=== PATIENT | female | born 1965 | race African-American/Black ===

== ENCOUNTER 2020-06-27 09:24 | Inpatient (IN) ==
[2020-06-27] MEDS ORDERED: GLUCAGON 1 MG VIAL IM PRN (10:58)
[2020-06-27] MEDS ORDERED: DEXTROSE 50% 25 GM/50 ML VIAL IV PRN (10:58)
[2020-06-27] MEDS ORDERED: BISACODYL 5 MG TABLET PO PRN (10:58)
[2020-06-27] MEDS: DEXTROSE 5% NACL 0.45% 1,000 ML IV SCH (11:55)
[2020-06-27] MEDS: PIPERACILLIN/TAZOBACTAM 3,375 MG in SODIUM CHLORIDE 0.9% 100 ML IV SCH ×2 (14:05→22:05)
[2020-06-28 05:46] LABS: Basophils % 0.2 % (0.0-0.8); Eosinophils # 0.1 10*3/uL (0.0-0.87); Eosinophils % 0.3 % (0.00-10.9); Hematocrit 34.1 VOL% (35.7-47.0); Hemoglobin 11.6 GM/DL (12.0-16.0); Immature Granulocytes % 0.7 %; Immature Granulocytes Absolute 0.14 #; Lymphocytes # 0.7 10*3/uL (1.4-4.0); Lymphocytes % 3.3 % (21.3-54.2); Mean Platelet Volume 11.9 FL (9.6-12.0); Monocytes % 3.2 % (1.7-12.7); Neutrophils % 92.3 % (38.7-73.9); Platelet Count 180 T/CUMM (130-400); Red Blood Count 3.92 MC/CUMM (3.8-5.5); Red Cell Distribution Width 14.6 % (9.3-17.3); White Blood Count 19.9 T/CUMM (4-12)
[2020-06-28 06:04] LABS: Calcium 9.5 MG/DL (8.5-10.1); Osmolality,Calculated 277.7 MOS/KG (273-304)
[2020-06-28] MEDS: DEXTROSE 5% NACL 0.45% 1,000 ML IV SCH ×2 (06:06→22:19)
[2020-06-28] MEDS: PIPERACILLIN/TAZOBACTAM 3,375 MG in SODIUM CHLORIDE 0.9% 100 ML IV SCH ×2 (06:06→16:08)
[2020-06-28 06:10] LABS: Band Neutrophils 2 % (0-10); Hypochromasia 1+; Lymphocytes 3 % (20-55); Platelet Estimate Adequate; Segmented Neutrophils 92 % (50-85); Total Cells Counted 100
[2020-06-28 08:27] LABS: INR 1.2; PT Patient Result 12.7 SECS (9.8-11.9)
[2020-06-28] MEDS ORDERED: cefTRIAXone 1,000 MG in SODIUM CHLORIDE 0.9% 100 ML IV SCH (09:00)
[2020-06-28] MEDS ORDERED: SODIUM CHLORIDE 0.45% 1,000 ML IV SCH (11:00)
[2020-06-28] MEDS ORDERED: DIAZEPAM 5 MG TABLET PO ONE (12:00)
[2020-06-28] MEDS: hydroCHLOROthiazide 12.5 MG CAPSULE PO SCH (14:55)
[2020-06-28] MEDS: OLMESARTAN 20 MG TABLET PO SCH (14:55)
[2020-06-28] MEDS: PANTOPRAZOLE 40 MG TABLET PO SCH (14:55)
[2020-06-29] MEDS: PIPERACILLIN/TAZOBACTAM 3,375 MG in SODIUM CHLORIDE 0.9% 100 ML IV SCH ×3 (00:31→16:00)
[2020-06-29] MEDS: DEXTROSE 5% NACL 0.45% 1,000 ML IV SCH ×2 (04:56→22:58)
[2020-06-29 05:44] LABS: Basophils % 0.2 % (0.0-0.8); Hematocrit 30.4 VOL% (35.7-47.0); Immature Granulocytes % 0.7 %; Immature Granulocytes Absolute 0.14 #; Lymphocytes # 1.5 10*3/uL (1.4-4.0); Lymphocytes % 7.9 % (21.3-54.2); Mean Corpuscular HGB Conc 32.9 GM/DL (32-36); Mean Corpuscular Volume 86.6 FL (87-102); Monocytes % 7.5 % (1.7-12.7); NRBC # 0.02 10*3/uL; Neutrophils % 83.7 % (38.7-73.9); Platelet Count 188 T/CUMM (130-400); Red Blood Count 3.51 MC/CUMM (3.8-5.5); Red Cell Distribution Width 14.5 % (9.3-17.3)
[2020-06-29 05:53] LABS: Calcium 8.9 MG/DL (8.5-10.1); Osmolality,Calculated 277.7 MOS/KG (273-304)
[2020-06-29 06:10] LABS: Band Neutrophils 1 % (0-10); Hypochromasia 1+; Lymphocytes 7 % (20-55); Microcytosis 1+; Ovalocytes Slight; Platelet Estimate Adequate; Segmented Neutrophils 89 % (50-85); Total Cells Counted 100
[2020-06-29] MEDS: hydroCHLOROthiazide 12.5 MG CAPSULE PO SCH (08:44)
[2020-06-29] MEDS: OLMESARTAN 20 MG TABLET PO SCH (08:44)
[2020-06-29] MEDS: PANTOPRAZOLE 40 MG TABLET PO SCH (08:44)
[2020-06-30] MEDS: PIPERACILLIN/TAZOBACTAM 3,375 MG in SODIUM CHLORIDE 0.9% 100 ML IV SCH ×3 (02:24→17:54)
[2020-06-30 05:57] LABS: Basophils # 0.1 10*3/uL (0.0-0.2); Basophils % 0.4 % (0.0-0.8); Eosinophils % 0.3 % (0.00-10.9); Hematocrit 30.1 VOL% (35.7-47.0); Hemoglobin 10.2 GM/DL (12.0-16.0); Immature Granulocytes % 2.8 %; Immature Granulocytes Absolute 0.37 #; Lymphocytes % 14.6 % (21.3-54.2); Mean Corpuscular HGB Conc 33.9 GM/DL (32-36); Mean Platelet Volume 11.3 FL (9.6-12.0); Monocytes % 12.4 % (1.7-12.7); Neutrophils % 69.5 % (38.7-73.9); Platelet Count 176 T/CUMM (130-400); Red Cell Distribution Width 14.5 % (9.3-17.3); White Blood Count 13.3 T/CUMM (4-12)
[2020-06-30 06:26] LABS: Calcium 8.6 MG/DL (8.5-10.1); Osmolality,Calculated 278.4 MOS/KG (273-304)
[2020-06-30] MEDS: OLMESARTAN 20 MG TABLET PO SCH (09:05)
[2020-06-30] MEDS: hydroCHLOROthiazide 12.5 MG CAPSULE PO SCH (09:06)
[2020-06-30] MEDS: PANTOPRAZOLE 40 MG TABLET PO SCH (09:06)
[2020-06-30] MEDS ORDERED: POTASSIUM CHLORIDE 20 MEQ TABLET PO ONE (11:30)
[2020-06-30] MEDS: DEXTROSE 5% NACL 0.45% 1,000 ML IV SCH (23:52)
[2020-07-01] MEDS: DEXTROSE 5% NACL 0.45% 1,000 ML IV SCH ×3 (00:12→22:56)
[2020-07-01] MEDS: PIPERACILLIN/TAZOBACTAM 3,375 MG in SODIUM CHLORIDE 0.9% 100 ML IV SCH ×3 (01:20→19:19)
[2020-07-01 04:47] LABS: Basophils # 0.1 10*3/uL (0.0-0.2); Basophils % 0.4 % (0.0-0.8); Eosinophils # 0.1 10*3/uL (0.0-0.87); Eosinophils % 0.3 % (0.00-10.9); Hematocrit 29.4 VOL% (35.7-47.0); Hemoglobin 10.2 GM/DL (12.0-16.0); Immature Granulocytes % 4.7 %; Immature Granulocytes Absolute 0.79 #; Lymphocytes # 2.2 10*3/uL (1.4-4.0); Lymphocytes % 13.2 % (21.3-54.2); Mean Corpuscular HGB Conc 34.7 GM/DL (32-36); Mean Corpuscular Volume 85.5 FL (87-102); Mean Platelet Volume 10.5 FL (9.6-12.0); Monocytes % 12.5 % (1.7-12.7); NRBC # 0.04 10*3/uL; Neutrophils % 68.9 % (38.7-73.9); Platelet Count 208 T/CUMM (130-400); Red Blood Count 3.44 MC/CUMM (3.8-5.5); Red Cell Distribution Width 14.3 % (9.3-17.3); White Blood Count 16.8 T/CUMM (4-12)
[2020-07-01 05:06] LABS: Calcium 9.2 MG/DL (8.5-10.1); Osmolality,Calculated 271.8 MOS/KG (273-304)
[2020-07-01 05:12] LABS: Lymphocytes 10 % (20-55); Segmented Neutrophils 80 % (50-85); Total Cells Counted 100
[2020-07-01 05:13] LABS: Hypochromasia 1+; Microcytosis 1+; Ovalocytes Slight; Platelet Estimate Adequate
[2020-07-01] MEDS: OLMESARTAN 20 MG TABLET PO SCH (09:08)
[2020-07-01] MEDS: hydroCHLOROthiazide 12.5 MG CAPSULE PO SCH (09:08)
[2020-07-01] MEDS: PANTOPRAZOLE 40 MG TABLET PO SCH (09:09)
[2020-07-01] MEDS ORDERED: POTASSIUM CHLORIDE INJ 50 MEQ in SODIUM CHLORIDE 0.9% 500 ML IV ONE (10:00)
[2020-07-01] MEDS: ONDANSETRON 4 MG/2 ML VIAL IV PRN (12:36)
[2020-07-01] MEDS ORDERED: fentaNYL 100 MCG/2 ML VIAL ONE (13:07)
[2020-07-01] MEDS ORDERED: MIDAZOLAM 2 MG/2 ML VIAL ONE (13:07)
[2020-07-01] MEDS ORDERED: LIDOCAINE 1% 5 ML VIAL ONE (13:08)
[2020-07-01] MEDS ORDERED: DEXAMETHASONE 4 MG/1 ML VIAL ONE (13:08)
[2020-07-01] MEDS ORDERED: ROPIVACAINE 0.5% 30 ML VIAL ONE (13:09)
[2020-07-01] MEDS ORDERED: ONDANSETRON 4 MG/2 ML VIAL IV PRN (17:36)
[2020-07-01 17:38] LABS: Bilirubin,Urine Negative (Negative); Blood, Urine Negative (Negative); Glucose,Urine (UA) Negative (Negative); Ketones,Urine Negative (Negative); Mucus,Urine Occasional /LPF (Occasional); Nitrite,Urine Negative (Negative); Protein,Urine Negative; RBC,Urine 1 /HPF (0-4); Squamous Epithelial Cell,Urine Occasional /HPF (0-10); Urine Appearance CLEAR (Clear); Urine Color Yellow (Yellow); Urine Specific Gravity 1.008 (1.001-1.035)
[2020-07-01] MEDS: HYDROmorphone 2 MG/1 ML VIAL IV PRN ×4 (17:40→18:02)
[2020-07-01] MEDS: MORPHINE 4 MG/1 ML VIAL IV PRN ×2 (19:43→23:40)
[2020-07-02] MEDS: DEXTROSE 5% NACL 0.45% 1,000 ML IV SCH ×2 (01:36→23:33)
[2020-07-02] MEDS: PIPERACILLIN/TAZOBACTAM 3,375 MG in SODIUM CHLORIDE 0.9% 100 ML IV SCH ×3 (01:38→16:51)
[2020-07-02] MEDS: MORPHINE 4 MG/1 ML VIAL IV PRN ×2 (04:33→12:45)
[2020-07-02 06:23] LABS: Basophils # 0.1 10*3/uL (0.0-0.2); Basophils % 0.3 % (0.0-0.8); Hematocrit 31.1 VOL% (35.7-47.0); Hemoglobin 10.5 GM/DL (12.0-16.0); Immature Granulocytes % 2.5 %; Lymphocytes # 2.2 10*3/uL (1.4-4.0); Lymphocytes % 9.1 % (21.3-54.2); Mean Corpuscular HGB Conc 33.8 GM/DL (32-36); Mean Corpuscular Volume 88.6 FL (87-102); Mean Platelet Volume 10.9 FL (9.6-12.0); Monocytes % 6.1 % (1.7-12.7); NRBC # 0.03 10*3/uL; Platelet Count 254 T/CUMM (130-400); Red Blood Count 3.51 MC/CUMM (3.8-5.5); Red Cell Distribution Width 14.7 % (9.3-17.3); White Blood Count 23.8 T/CUMM (4-12)
[2020-07-02 06:46] LABS: Calcium 9.2 MG/DL (8.5-10.1); Osmolality,Calculated 279.4 MOS/KG (273-304)
[2020-07-02 06:48] LABS: Band Neutrophils 18 % (0-10); Lymphocytes 10 % (20-55); Metamyelocytes 1 %; Nucleated Red Blood Cells 1 (0-5); Platelet Estimate Normal; Segmented Neutrophils 65 % (50-85); Total Cells Counted 100
[2020-07-02 06:49] LABS: Anisocytosis Slight; Smudge Cells Few
[2020-07-02] MEDS: OLMESARTAN 20 MG TABLET PO SCH (09:01)
[2020-07-02] MEDS: PANTOPRAZOLE 40 MG TABLET PO SCH (09:01)
[2020-07-02] MEDS: hydroCHLOROthiazide 12.5 MG CAPSULE PO SCH (09:01)
[2020-07-02] MEDS: ENOXAPARIN 40 MG/0.4 ML SYRINGE SUBCUT SCH (20:52)
[2020-07-03 06:14] LABS: Basophils # 0.1 10*3/uL (0.0-0.2); Basophils % 0.2 % (0.0-0.8); Hematocrit 26.7 VOL% (35.7-47.0); Hemoglobin 9.4 GM/DL (12.0-16.0); Immature Granulocytes % 4.3 %; Immature Granulocytes Absolute 1.15 #; Lymphocytes # 3.2 10*3/uL (1.4-4.0); Lymphocytes % 11.9 % (21.3-54.2); Mean Corpuscular HGB Conc 35.2 GM/DL (32-36); Mean Corpuscular Volume 91.1 FL (87-102); Mean Platelet Volume 10.6 FL (9.6-12.0); Monocytes % 5.3 % (1.7-12.7); NRBC # 0.07 10*3/uL; Neutrophils % 78.3 % (38.7-73.9); Platelet Count 321 T/CUMM (130-400); Red Blood Count 2.93 MC/CUMM (3.8-5.5); Red Cell Distribution Width 16.3 % (9.3-17.3); White Blood Count 26.6 T/CUMM (4-12)
[2020-07-03 06:34] LABS: Calcium 8.7 MG/DL (8.5-10.1)
[2020-07-03 08:28] LABS: Band Neutrophils 4 % (0-10); Metamyelocytes 2 %; Total Cells Counted 100
[2020-07-03 08:29] LABS: Giant Platelets Few; Hypochromasia Slight; Lymphocytes 11 % (20-55); Platelet Estimate Normal; Segmented Neutrophils 76 % (50-85)
[2020-07-03] MEDS: DEXTROSE 5% NACL 0.45% 1,000 ML IV SCH (08:47)
[2020-07-03] MEDS: PIPERACILLIN/TAZOBACTAM 3,375 MG in SODIUM CHLORIDE 0.9% 100 ML IV SCH ×2 (08:48→16:11)
[2020-07-03] MEDS: hydroCHLOROthiazide 12.5 MG CAPSULE PO SCH (08:49)
[2020-07-03] MEDS: OLMESARTAN 20 MG TABLET PO SCH (08:49)
[2020-07-03] MEDS: PANTOPRAZOLE 40 MG TABLET PO SCH ×2 (08:49→20:49)
[2020-07-03] MEDS: MORPHINE 4 MG/1 ML VIAL IV PRN (09:47)
[2020-07-03] MEDS: ENOXAPARIN 40 MG/0.4 ML SYRINGE SUBCUT SCH (20:50)
[2020-07-04] MEDS: PIPERACILLIN/TAZOBACTAM 3,375 MG in SODIUM CHLORIDE 0.9% 100 ML IV SCH ×3 (00:35→18:17)
[2020-07-04 06:43] LABS: Basophils # 0.1 10*3/uL (0.0-0.2); Basophils % 0.2 % (0.0-0.8); Eosinophils % 0.1 % (0.00-10.9); Hematocrit 26.7 VOL% (35.7-47.0); Hemoglobin 9.1 GM/DL (12.0-16.0); Immature Granulocytes % 3.8 %; Immature Granulocytes Absolute 1.15 #; Lymphocytes % 9.9 % (21.3-54.2); Mean Corpuscular HGB Conc 34.1 GM/DL (32-36); Mean Platelet Volume 10.2 FL (9.6-12.0); Monocytes % 4.8 % (1.7-12.7); NRBC # 0.09 10*3/uL; Neutrophils % 81.2 % (38.7-73.9); Platelet Count 300 T/CUMM (130-400); Red Cell Distribution Width 15.1 % (9.3-17.3); White Blood Count 30.4 T/CUMM (4-12)
[2020-07-04 06:59] LABS: Calcium 8.8 MG/DL (8.5-10.1)
[2020-07-04] MEDS: DEXTROSE 5% NACL 0.45% 1,000 ML IV SCH (07:48)
[2020-07-04] MEDS: PANTOPRAZOLE 40 MG TABLET PO SCH ×2 (09:33→20:36)
[2020-07-04] MEDS: OLMESARTAN 20 MG TABLET PO SCH (09:33)
[2020-07-04] MEDS: hydroCHLOROthiazide 12.5 MG CAPSULE PO SCH (09:33)
[2020-07-04 12:24] LABS: Lymphocytes 8 % (20-55); Segmented Neutrophils 92 % (50-85); Total Cells Counted 100
[2020-07-04 12:25] LABS: Platelet Estimate Adequate
[2020-07-04] MEDS: VANCOMYCIN INJ 1,500 MG in SODIUM CHLORIDE 0.9% 500 ML IV SCH ×2 (14:15→22:33)
[2020-07-04] MEDS: ENOXAPARIN 40 MG/0.4 ML SYRINGE SUBCUT SCH (20:36)
[2020-07-05] MEDS: PIPERACILLIN/TAZOBACTAM 3,375 MG in SODIUM CHLORIDE 0.9% 100 ML IV SCH ×3 (02:47→22:59)
[2020-07-05] MEDS: ONDANSETRON 4 MG/2 ML VIAL IV PRN (03:42)
[2020-07-05 06:28] LABS: Basophils # 0.1 10*3/uL (0.0-0.2); Basophils % 0.2 % (0.0-0.8); Hematocrit 26.3 VOL% (35.7-47.0); Immature Granulocytes % 3.1 %; Immature Granulocytes Absolute 1.03 #; Lymphocytes # 2.2 10*3/uL (1.4-4.0); Lymphocytes % 6.7 % (21.3-54.2); Mean Corpuscular HGB Conc 34.2 GM/DL (32-36); Mean Platelet Volume 10.3 FL (9.6-12.0); Monocytes % 4.3 % (1.7-12.7); NRBC # 0.09 10*3/uL; Neutrophils % 85.7 % (38.7-73.9); Platelet Count 365 T/CUMM (130-400); Red Blood Count 2.99 MC/CUMM (3.8-5.5); Red Cell Distribution Width 14.7 % (9.3-17.3); White Blood Count 32.8 T/CUMM (4-12)
[2020-07-05 07:01] LABS: Anisocytosis 2+; Band Neutrophils 8 % (0-10); Calcium 8.9 MG/DL (8.5-10.1); Lymphocytes 9 % (20-55); Osmolality,Calculated 264.2 MOS/KG (273-304); Platelet Estimate Normal; Polychromasia Slight; Segmented Neutrophils 73 % (50-85); Target Cells Few; Total Cells Counted 100
[2020-07-05 07:02] LABS: Macrocytosis Slight
[2020-07-05] MEDS: hydroCHLOROthiazide 12.5 MG CAPSULE PO SCH (09:17)
[2020-07-05] MEDS: OLMESARTAN 20 MG TABLET PO SCH (09:17)
[2020-07-05] MEDS: VANCOMYCIN INJ 1,500 MG in SODIUM CHLORIDE 0.9% 500 ML IV SCH ×2 (09:18→20:03)
[2020-07-05] MEDS: PANTOPRAZOLE 40 MG TABLET PO SCH ×2 (09:18→21:30)
[2020-07-05 11:36] LABS: Amorphous Crystals,Urine Few /HPF (Few); Bilirubin,Urine Negative (Negative); Blood, Urine Negative (Negative); Glucose,Urine (UA) Negative (Negative); Ketones,Urine Negative (Negative); Mucus,Urine Occasional /LPF (Occasional); Nitrite,Urine Negative (Negative); Protein,Urine Negative; RBC,Urine 3 /HPF (0-4); Squamous Epithelial Cell,Urine Moderate /HPF (0-10); Urine Appearance Slightly Hazy (Clear); Urine Color Amber (Yellow); WBC,Urine 1 /HPF (0-6)
[2020-07-05] MEDS: ENOXAPARIN 40 MG/0.4 ML SYRINGE SUBCUT SCH (21:31)
[2020-07-06] MEDS: PIPERACILLIN/TAZOBACTAM 3,375 MG in SODIUM CHLORIDE 0.9% 100 ML IV SCH ×2 (05:01→13:50)
[2020-07-06 07:24] LABS: Basophils # 0.1 10*3/uL (0.0-0.2); Basophils % 0.2 % (0.0-0.8); Eosinophils % 0.1 % (0.00-10.9); Hematocrit 26.4 VOL% (35.7-47.0); Hemoglobin 8.9 GM/DL (12.0-16.0); Immature Granulocytes Absolute 0.52 #; Lymphocytes # 2.2 10*3/uL (1.4-4.0); Lymphocytes % 8.2 % (21.3-54.2); Mean Corpuscular HGB Conc 33.7 GM/DL (32-36); Mean Corpuscular Volume 88.6 FL (87-102); Mean Platelet Volume 9.9 FL (9.6-12.0); Monocytes % 5.3 % (1.7-12.7); NRBC # 0.07 10*3/uL; Neutrophils % 84.2 % (38.7-73.9); Platelet Count 394 T/CUMM (130-400); Red Blood Count 2.98 MC/CUMM (3.8-5.5); Red Cell Distribution Width 15.3 % (9.3-17.3); White Blood Count 26.4 T/CUMM (4-12)
[2020-07-06 07:45] LABS: Calcium 8.9 MG/DL (8.5-10.1); Osmolality,Calculated 267.1 MOS/KG (273-304)
[2020-07-06 07:48] LABS: Hypochromasia 1+; Lymphocytes 4 % (20-55); Microcytosis 1+; Nucleated Red Blood Cells 1 (0-5); Platelet Estimate Adequate; Segmented Neutrophils 92 % (50-85); Total Cells Counted 100
[2020-07-06] MEDS: OLMESARTAN 20 MG TABLET PO SCH (09:13)
[2020-07-06] MEDS: hydroCHLOROthiazide 12.5 MG CAPSULE PO SCH (09:14)
[2020-07-06] MEDS: PANTOPRAZOLE 40 MG TABLET PO SCH ×2 (09:14→20:37)
[2020-07-06] MEDS: VANCOMYCIN INJ 1,500 MG in SODIUM CHLORIDE 0.9% 500 ML IV SCH ×2 (09:16→20:37)
[2020-07-06] MEDS: ENOXAPARIN 40 MG/0.4 ML SYRINGE SUBCUT SCH (20:37)
[2020-07-07] MEDS: PIPERACILLIN/TAZOBACTAM 3,375 MG in SODIUM CHLORIDE 0.9% 100 ML IV SCH ×2 (01:26→08:50)
[2020-07-07] MEDS: hydroCHLOROthiazide 12.5 MG CAPSULE PO SCH (08:51)
[2020-07-07] MEDS: OLMESARTAN 20 MG TABLET PO SCH (08:51)
[2020-07-07] MEDS: PANTOPRAZOLE 40 MG TABLET PO SCH (08:51)
[2020-07-07 09:06] LABS: Basophils # 0.1 10*3/uL (0.0-0.2); Basophils % 0.2 % (0.0-0.8); Eosinophils % 0.1 % (0.00-10.9); Hematocrit 27.8 VOL% (35.7-47.0); Hemoglobin 9.4 GM/DL (12.0-16.0); Immature Granulocytes % 1.7 %; Immature Granulocytes Absolute 0.49 #; Lymphocytes # 2.2 10*3/uL (1.4-4.0); Lymphocytes % 7.8 % (21.3-54.2); Mean Corpuscular HGB Conc 33.8 GM/DL (32-36); Mean Corpuscular Volume 86.9 FL (87-102); Mean Platelet Volume 9.7 FL (9.6-12.0); Monocytes % 4.9 % (1.7-12.7); NRBC # 0.06 10*3/uL; Neutrophils % 85.3 % (38.7-73.9); Platelet Count 455 T/CUMM (130-400); Red Cell Distribution Width 15.5 % (9.3-17.3)
[2020-07-07 09:32] LABS: Albumin 2.2 G/DL (3.4-5.0); Bilirubin,Total 2.4 MG/DL (0.2-1.0); Osmolality,Calculated 267.2 MOS/KG (273-304)
[2020-07-07 09:40] LABS: Hypochromasia 1+; Lymphocytes 9 % (20-55); Microcytosis 1+; Nucleated Red Blood Cells 1 (0-5); Platelet Estimate Adequate; Segmented Neutrophils 86 % (50-85); Total Cells Counted 100
[2020-07-07] MEDS: MORPHINE 4 MG/1 ML VIAL IV PRN (10:49)
[2020-07-07] MEDS ORDERED: VANCOMYCIN INJ 1,500 MG in SODIUM CHLORIDE 0.9% 500 ML IV SCH (14:00)
[2020-07-07 15:39] VITALS: BP 148/72
== END 2020-07-07 16:00 | disposition home health service (06) | DRG 329 ==
LOC: EDBD → EDUNIT# → N.ED 09:24 → N.EDINP 10:56 → SUATTDRO 10:56 → N.5E 11:44
PROVIDERS: ADMIT Internal Medicine; ATTEND Family Medicine

== ENCOUNTER 2021-05-05 08:09 | Inpatient (IN) ==
[2021-04-22 12:22] LABS: Basophils % 0.4 % (0.0-0.8); Eosinophils % 0.6 % (0.00-10.9); Hematocrit 32.6 VOL% (35.7-47.0); Hemoglobin 10.7 GM/DL (12.0-16.0); Immature Granulocytes % 0.6 %; Immature Granulocytes Absolute 0.04 #; Lymphocytes # 2.2 10*3/uL (1.4-4.0); Lymphocytes % 32.2 % (21.3-54.2); Mean Corpuscular HGB Conc 32.8 GM/DL (32-36); Mean Corpuscular Volume 97.3 FL (87-102); Mean Platelet Volume 10.6 FL (9.6-12.0); Monocytes % 10.8 % (1.7-12.7); Neutrophils % 55.4 % (38.7-73.9); Red Blood Count 3.35 MC/CUMM (3.8-5.5); Red Cell Distribution Width 16.7 % (9.3-17.3); White Blood Count 6.7 T/CUMM (4-12)
[2021-04-22 12:23] LABS: Platelet Count 85 T/CUMM (130-400)
[2021-04-22 12:40] LABS: Calcium 8.9 MG/DL (8.5-10.1); Potassium 3.6 MMOL/L (3.5-5.1)
[2021-04-22 12:42] LABS: Hypochromasia 1+; Microcytosis 1+; Platelet Estimate Decreased
[~2021-05-05 08:09] MED LIST: cefOXitin 1,000 MG in SODIUM CHLORIDE 0.9% 100 ML IV ONE
[2021-05-05] MEDS ORDERED: ACETAMINOPHEN 500 MG TABLET PO ONE (08:34)
[2021-05-05] MEDS ORDERED: GABAPENTIN 400 MG CAPSULE PO ONE (08:34)
[2021-05-05] MEDS ORDERED: FAMOTIDINE 20 MG TABLET PO ONE (08:34)
[2021-05-05] MEDS ORDERED: LACTATED RINGERS 1,000 ML IV SCH (09:30)
[2021-05-05] MEDS ORDERED: EPINEPHrine 1 MG/ML VIAL ONE (09:31)
[2021-05-05] MEDS ORDERED: BUPIVACAINE MPF 0.25% 30 ML VIAL ONE (09:31)
[2021-05-05] MEDS ORDERED: DEXAMETHASONE 4 MG/1 ML VIAL ONE (09:31)
[2021-05-05] MEDS ORDERED: MIDAZOLAM 2 MG/2 ML VIAL ONE ×3 (09:47)
[2021-05-05] MEDS ORDERED: fentaNYL 100 MCG/2 ML VIAL ONE ×4 (09:47→11:19)
[2021-05-05 09:58] LABS: Basophils % 0.4 % (0.0-0.8); Eosinophils % 0.2 % (0.00-10.9); Hematocrit 35.1 VOL% (35.7-47.0); Hemoglobin 12.1 GM/DL (12.0-16.0); Immature Granulocytes % 0.4 %; Immature Granulocytes Absolute 0.02 #; Lymphocytes # 1.4 10*3/uL (1.4-4.0); Lymphocytes % 25.4 % (21.3-54.2); Mean Corpuscular HGB Conc 34.5 GM/DL (32-36); Mean Corpuscular Volume 93.1 FL (87-102); Mean Platelet Volume 10.1 FL (9.6-12.0); Monocytes % 7.1 % (1.7-12.7); Neutrophils % 66.5 % (38.7-73.9); Platelet Count 91 T/CUMM (130-400); Red Blood Count 3.77 MC/CUMM (3.8-5.5); Red Cell Distribution Width 15.5 % (9.3-17.3); White Blood Count 5.7 T/CUMM (4-12)
[2021-05-05] MEDS ORDERED: propofoL 200 MG/20 ML VIAL IV ONE ×3 (10:03→11:01)
[2021-05-05 10:26] LABS: Hypochromasia 1+; Microcytosis 1+; Platelet Estimate Decreased
[2021-05-05] MEDS ORDERED: SEVOFLURANE 1 UNIT/15 MINUTE INH ONE (10:52)
[2021-05-05] MEDS ORDERED: ROCURONIUM 50 MG/5 ML VIAL IV ONE ×2 (10:53→12:31)
[2021-05-05] MEDS ORDERED: ONDANSETRON 4 MG/2 ML VIAL ONE (10:53)
[2021-05-05] MEDS ORDERED: hydrALAZINE 20 MG/1 ML VIAL ONE (11:23)
[2021-05-05] MEDS ORDERED: METOPROLOL TARTRATE 5 MG/5 ML VIAL IV ONE (11:23)
[2021-05-05] MEDS ORDERED: MINERAL OIL/PETROLATUM OPH OINT 3.5 GM TUBE ONE (11:23)
[2021-05-05] MEDS ORDERED: INDOCYANINE GREEN 25 MG VIAL IV ONE (12:07)
[2021-05-05] MEDS ORDERED: LACTATED RINGERS 2,000 ML IV ONE (12:31)
[2021-05-05] MEDS ORDERED: SUGAMMADEX 200 MG/2 ML VIAL IV ONE (12:36)
[2021-05-05] MEDS ORDERED: ACETAMINOPHEN 325 MG TABLET PO PRN (13:22)
[2021-05-05] MEDS ORDERED: ALBUTEROL/IPRATROPIUM 3 ML NEB RESP TX PRN (13:22)
[2021-05-05] MEDS ORDERED: HYDROmorphone 2 MG/1 ML VIAL IV PRN (13:22)
[2021-05-05] MEDS ORDERED: ONDANSETRON 4 MG/2 ML VIAL IV PRN (13:22)
[2021-05-05 14:18] LABS: Bacteria,Urine Occasional /HPF (Few); Bilirubin,Urine Negative (Negative); Blood, Urine Negative (Negative); Glucose,Urine (UA) Negative (Negative); Hyaline Casts,Urine 5 /LPF (0-3); Ketones,Urine Negative (Negative); Mucus,Urine Moderate /LPF (Occasional); Nitrite,Urine Negative (Negative); Protein,Urine Negative; RBC,Urine <1 /HPF (0-4); Squamous Epithelial Cell,Urine Occasional /HPF (0-10); Urine Appearance CLEAR (Clear); Urine Color Yellow (Yellow); Urine Urobilinogen < 2.0 EU/DL (0.2-1.0)
[2021-05-05] MEDS: LACTATED RINGERS 1,000 ML IV SCH ×2 (14:27→21:54)
[2021-05-05] MEDS: KETOROLAC 15 MG/1 ML VIAL IV SCH ×2 (15:01→21:54)
[2021-05-05] MEDS: HYDROmorphone 2 MG/1 ML VIAL IV PRN (20:36)
[2021-05-05] MEDS: GABAPENTIN 300 MG CAPSULE PO SCH (21:54)
[2021-05-06] MEDS: KETOROLAC 15 MG/1 ML VIAL IV SCH ×3 (01:52→18:05)
[2021-05-06 07:00] LABS: Basophils % 0.1 % (0.0-0.8); Hematocrit 24.8 VOL% (35.7-47.0); Hemoglobin 8.1 GM/DL (12.0-16.0); Immature Granulocytes % 0.7 %; Immature Granulocytes Absolute 0.07 #; Lymphocytes # 1.2 10*3/uL (1.4-4.0); Mean Corpuscular HGB Conc 32.7 GM/DL (32-36); Mean Corpuscular Volume 96.1 FL (87-102); Monocytes % 6.2 % (1.7-12.7); Red Blood Count 2.58 MC/CUMM (3.8-5.5); Red Cell Distribution Width 15.7 % (9.3-17.3); White Blood Count 9.6 T/CUMM (4-12)
[2021-05-06 07:02] LABS: Platelet Count 91 T/CUMM (130-400)
[2021-05-06 07:15] LABS: Calcium 9.2 MG/DL (8.5-10.1); Osmolality,Calculated 280.1 MOS/KG (273-304)
[2021-05-06 07:29] LABS: Anisocytosis 2+; Macrocytosis Slight; Platelet Estimate Decreased
[2021-05-06] MEDS: GABAPENTIN 300 MG CAPSULE PO SCH ×2 (10:43→20:43)
[2021-05-06] MEDS: PANTOPRAZOLE 40 MG VIAL IV SCH (10:43)
[2021-05-06] MEDS: LOSARTAN 50 MG TABLET PO SCH (10:44)
[2021-05-06 13:17] LABS: Hematocrit 28.7 VOL% (35.7-47.0); Hemoglobin 9.6 GM/DL (12.0-16.0)
[2021-05-06] MEDS: LACTATED RINGERS 1,000 ML IV SCH ×2 (17:28→20:42)
[2021-05-06] MEDS: HYDROmorphone 2 MG/1 ML VIAL IV PRN (20:48)
[2021-05-07] MEDS: KETOROLAC 15 MG/1 ML VIAL IV SCH ×5 (00:11→23:51)
[2021-05-07] MEDS: LACTATED RINGERS 1,000 ML IV SCH ×3 (04:27→20:20)
[2021-05-07 07:02] LABS: Basophils % 0.3 % (0.0-0.8); Eosinophils % 0.1 % (0.00-10.9); Hematocrit 24.7 VOL% (35.7-47.0); Hemoglobin 7.8 GM/DL (12.0-16.0); Immature Granulocytes % 0.3 %; Immature Granulocytes Absolute 0.02 #; Lymphocytes % 29.3 % (21.3-54.2); Mean Corpuscular HGB Conc 31.6 GM/DL (32-36); Mean Corpuscular Volume 99.6 FL (87-102); Mean Platelet Volume 10.6 FL (9.6-12.0); Monocytes % 6.7 % (1.7-12.7); Neutrophils % 63.3 % (38.7-73.9); Platelet Count 81 T/CUMM (130-400); Red Blood Count 2.48 MC/CUMM (3.8-5.5); Red Cell Distribution Width 15.8 % (9.3-17.3); White Blood Count 6.7 T/CUMM (4-12)
[2021-05-07 07:12] LABS: Calcium 8.9 MG/DL (8.5-10.1); Osmolality,Calculated 280.1 MOS/KG (273-304); Potassium 3.3 MMOL/L (3.5-5.1)
[2021-05-07 07:52] LABS: Hypochromasia Slight; Microcytosis 1+
[2021-05-07 07:53] LABS: Platelet Estimate Decreased
[2021-05-07] MEDS: GABAPENTIN 300 MG CAPSULE PO SCH ×2 (09:28→20:19)
[2021-05-07] MEDS: LOSARTAN 50 MG TABLET PO SCH (09:28)
[2021-05-07] MEDS: PANTOPRAZOLE 40 MG VIAL IV SCH (09:28)
[2021-05-07] MEDS: HYDROmorphone 2 MG/1 ML VIAL IV PRN (21:32)
[2021-05-08] MEDS: LACTATED RINGERS 1,000 ML IV SCH ×2 (04:14→15:51)
[2021-05-08] MEDS: KETOROLAC 15 MG/1 ML VIAL IV SCH ×2 (05:59→11:59)
[2021-05-08] MEDS: PANTOPRAZOLE 40 MG VIAL IV SCH (09:37)
[2021-05-08] MEDS: GABAPENTIN 300 MG CAPSULE PO SCH (09:37)
[2021-05-08] MEDS: LOSARTAN 50 MG TABLET PO SCH (09:37)
[2021-05-08 11:59] VITALS: BP 159/74
[2021-05-08] MEDS ORDERED: HEPARIN LOCK FLUSH 500 UNIT/5 ML SYRINGE IV ONE (12:13)
== END 2021-05-08 12:55 | disposition home or self-care (01) | DRG 330 ==
LOC: N.OR 08:09 → N.SDSINP 08:09 → N.4E 13:22
PROVIDERS: ADMIT Surgery; ATTEND Surgery

== ENCOUNTER 2021-06-07 11:13 | Observation (INO) ==
[2021-06-07] MEDS ORDERED: LACTATED RINGERS 1,000 ML IV ONE (12:36)
[2021-06-07] MEDS: MORPHINE 2 MG/1 ML SYRINGE IV PRN ×3 (13:23→19:12)
[2021-06-07 13:25] LABS: Basophils % 0.1 % (0.0-0.8); Hematocrit 30.6 VOL% (35.7-47.0); Hemoglobin 9.7 GM/DL (12.0-16.0); Immature Granulocytes % 0.6 %; Immature Granulocytes Absolute 0.11 #; Lymphocytes # 2.5 10*3/uL (1.4-4.0); Lymphocytes % 14.4 % (21.3-54.2); Mean Corpuscular HGB Conc 31.7 GM/DL (32-36); Mean Corpuscular Volume 91.9 FL (87-102); Mean Platelet Volume 9.6 FL (9.6-12.0); Monocytes % 9.8 % (1.7-12.7); Neutrophils % 75.1 % (38.7-73.9); Platelet Count 234 T/CUMM (130-400); Red Blood Count 3.33 MC/CUMM (3.8-5.5); Red Cell Distribution Width 15.4 % (9.3-17.3); White Blood Count 17.3 T/CUMM (4-12)
[2021-06-07 13:43] LABS: Calcium 13.1 MG/DL (8.5-10.1); Osmolality,Calculated 266.2 MOS/KG (273-304)
[2021-06-07] MEDS ORDERED: POTASSIUM CHLORIDE 20 MEQ TABLET PO ONE (15:00)
[2021-06-07] MEDS: LACTATED RINGERS 1,000 ML IV SCH ×2 (15:23→23:40)
[2021-06-07] MEDS ORDERED: KETOROLAC 15 MG/1 ML VIAL IV PRN (15:54)
[2021-06-07] MEDS ORDERED: ALBUTEROL/IPRATROPIUM 3 ML NEB RESP TX PRN (15:54)
[2021-06-07] MEDS: cefOXitin 1,000 MG in SODIUM CHLORIDE 0.9% 100 ML IV SCH ×2 (16:27→21:28)
[2021-06-07] MEDS: ONDANSETRON 4 MG/2 ML VIAL IV PRN (19:11)
[2021-06-07] MEDS: ACETAMINOPHEN 325 MG TABLET PO PRN (21:29)
[2021-06-07 22:02] LABS: Bacteria,Urine Occasional /HPF (Few); Bilirubin,Urine Negative (Negative); Blood, Urine Negative (Negative); Calcium Oxalate Crystals,Urine Occasional /HPF (Few); Glucose,Urine (UA) Negative (Negative); Hyaline Casts,Urine 4 /LPF (0-3); Ketones,Urine Negative (Negative); Mucus,Urine Moderate /LPF (Occasional); Nitrite,Urine Negative (Negative); Protein,Urine Negative; RBC,Urine 5 /HPF (0-4); Squamous Epithelial Cell,Urine Occasional /HPF (0-10); Uric Acid Crystals,Urine Few /HPF (<1); Urine Appearance Slightly Hazy (Clear); Urine Color Amber (Yellow); Urine Specific Gravity 1.014 (1.001-1.035)
[2021-06-08] MEDS: cefOXitin 1,000 MG in SODIUM CHLORIDE 0.9% 100 ML IV SCH ×4 (04:25→20:48)
[2021-06-08] MEDS: ONDANSETRON 4 MG/2 ML VIAL IV PRN ×2 (04:57→20:48)
[2021-06-08] MEDS: MORPHINE 2 MG/1 ML SYRINGE IV PRN ×6 (04:58→20:49)
[2021-06-08 05:32] LABS: Basophils % 0.2 % (0.0-0.8); Eosinophils % 0.2 % (0.00-10.9); Hematocrit 29.8 VOL% (35.7-47.0); Hemoglobin 9.2 GM/DL (12.0-16.0); Immature Granulocytes % 0.9 %; Immature Granulocytes Absolute 0.12 #; Lymphocytes # 2.8 10*3/uL (1.4-4.0); Lymphocytes % 20.4 % (21.3-54.2); Mean Corpuscular HGB Conc 30.9 GM/DL (32-36); Mean Corpuscular Volume 94.6 FL (87-102); Mean Platelet Volume 9.5 FL (9.6-12.0); Monocytes % 10.5 % (1.7-12.7); Neutrophils % 67.8 % (38.7-73.9); Platelet Count 198 T/CUMM (130-400); Red Blood Count 3.15 MC/CUMM (3.8-5.5); Red Cell Distribution Width 15.7 % (9.3-17.3); White Blood Count 13.6 T/CUMM (4-12)
[2021-06-08 05:48] LABS: Calcium 13.2 MG/DL (8.5-10.1); Osmolality,Calculated 270.8 MOS/KG (273-304); Potassium 4.6 MMOL/L (3.5-5.1)
[2021-06-08] MEDS: LACTATED RINGERS 1,000 ML IV SCH ×2 (06:37→15:41)
[2021-06-08] MEDS ORDERED: ROCURONIUM 50 MG/5 ML VIAL IV ONE (07:46)
[2021-06-08] MEDS ORDERED: LIDOCAINE 2% 5 ML VIAL ONE (07:46)
[2021-06-08] MEDS ORDERED: MIDAZOLAM 2 MG/2 ML VIAL ONE (07:47)
[2021-06-08] MEDS ORDERED: fentaNYL 100 MCG/2 ML VIAL ONE (07:47)
[2021-06-08] MEDS ORDERED: propofoL 200 MG/20 ML VIAL IV ONE (07:48)
[2021-06-08] MEDS: PANTOPRAZOLE 40 MG TABLET PO SCH (09:02)
[2021-06-08] MEDS ORDERED: MAGNESIUM CITRATE 300 ML BOTTLE PO ONE (11:00)
[2021-06-08] MEDS: POLYETHYLENE GLYCOL POWDER 17 GM PACK PO SCH (11:14)
[2021-06-08] MEDS: BISACODYL 5 MG TABLET PO SCH (11:14)
[2021-06-08] MEDS: ACETAMINOPHEN 325 MG TABLET PO PRN (20:48)
[2021-06-09] MEDS: LACTATED RINGERS 1,000 ML IV SCH ×4 (00:05→11:53)
[2021-06-09] MEDS: cefOXitin 1,000 MG in SODIUM CHLORIDE 0.9% 100 ML IV SCH ×3 (04:11→15:01)
[2021-06-09 05:30] LABS: Basophils % 0.3 % (0.0-0.8); Eosinophils % 0.2 % (0.00-10.9); Hemoglobin 8.5 GM/DL (12.0-16.0); Immature Granulocytes % 0.8 %; Immature Granulocytes Absolute 0.11 #; Lymphocytes # 2.3 10*3/uL (1.4-4.0); Lymphocytes % 17.5 % (21.3-54.2); Mean Corpuscular HGB Conc 31.5 GM/DL (32-36); Mean Corpuscular Volume 95.1 FL (87-102); Mean Platelet Volume 10.1 FL (9.6-12.0); Monocytes % 10.9 % (1.7-12.7); Neutrophils % 70.3 % (38.7-73.9); Platelet Count 189 T/CUMM (130-400); Red Blood Count 2.84 MC/CUMM (3.8-5.5); Red Cell Distribution Width 15.8 % (9.3-17.3)
[2021-06-09 05:51] LABS: Calcium 12.3 MG/DL (8.5-10.1); Osmolality,Calculated 274.5 MOS/KG (273-304); Potassium 3.7 MMOL/L (3.5-5.1)
[2021-06-09] MEDS: MORPHINE 2 MG/1 ML SYRINGE IV PRN ×2 (06:39→10:02)
[2021-06-09] MEDS: ONDANSETRON 4 MG/2 ML VIAL IV PRN (06:39)
[2021-06-09] MEDS: PANTOPRAZOLE 40 MG TABLET PO SCH (10:00)
[2021-06-09] MEDS: BISACODYL 5 MG TABLET PO SCH (10:00)
[2021-06-09] MEDS: POLYETHYLENE GLYCOL POWDER 17 GM PACK PO SCH (10:00)
[2021-06-09 11:44] VITALS: BP 149/80
== END 2021-06-09 15:47 | disposition home or self-care (01) ==
LOC: N.5E 11:47 → INTOOBSV 11:47
PROVIDERS: ADMIT Surgery; ATTEND Surgery

== ENCOUNTER 2021-08-23 12:00 | Inpatient (IN) ==
[2021-08-23] MEDS ORDERED: SODIUM CHLORIDE 0.9% 1,000 ML IV STA (15:15)
[2021-08-23 15:47] LABS: Basophils % 0.6 % (0.0-0.8); Hematocrit 36.4 VOL% (35.7-47.0); Hemoglobin 12.1 GM/DL (12.0-16.0); Immature Granulocytes % 3.3 %; Immature Granulocytes Absolute 0.21 #; Lymphocytes # 1.8 10*3/uL (1.4-4.0); Lymphocytes % 28.2 % (21.3-54.2); Mean Corpuscular HGB Conc 33.2 GM/DL (32-36); Mean Corpuscular Volume 94.5 FL (87-102); Mean Platelet Volume 11.4 FL (9.6-12.0); Monocytes % 29.7 % (1.7-12.7); NRBC # 0.03 10*3/uL; Neutrophils % 38.2 % (38.7-73.9); Platelet Count 144 T/CUMM (130-400); Red Blood Count 3.85 MC/CUMM (3.8-5.5); Red Cell Distribution Width 25.2 % (9.3-17.3); White Blood Count 6.3 T/CUMM (4-12)
[2021-08-23 15:57] LABS: INR 1.3
[2021-08-23 16:09] LABS: Ammonia < 10 UMOL/L (11-32)
[2021-08-23 16:13] LABS: Albumin 1.4 G/DL (3.4-5.0); Bilirubin,Total 10.8 MG/DL (0.20-1.00); Calcium 8.3 MG/DL (8.5-10.1); Osmolality,Calculated 268.1 MOS/KG (273-304); Potassium 3.5 MMOL/L (3.5-5.1); Total Protein 7.1 G/DL (6.4-8.2)
[2021-08-23 16:26] LABS: Bacteria,Urine Many /HPF (Few); Bilirubin,Urine Moderate mg/dL (Negative); Blood, Urine Negative (Negative); Glucose,Urine (UA) Negative (Negative); Ketones,Urine Negative (Negative); Mucus,Urine Occasional /LPF (Occasional); Nitrite,Urine Negative (Negative); Protein,Urine 100 MG/DL; RBC,Urine <1 /HPF (0-4); Squamous Epithelial Cell,Urine Occasional /HPF (0-10); Urine Appearance CLOUDY (Clear); Urine Color Amber (Yellow); Urine Specific Gravity 1.015 (1.001-1.035)
[2021-08-23 16:54] LABS: Lymphocytes 29 % (20-55); Promyelocytes 1 %; Segmented Neutrophils 41 % (50-85); Total Cells Counted 100
[2021-08-23 16:55] LABS: Platelet Estimate Adequate
[2021-08-23] MEDS ORDERED: GLUCAGON 1 MG VIAL IM PRN (19:21)
[2021-08-23] MEDS ORDERED: hydrALAZINE 20 MG/1 ML VIAL IV PRN (19:29)
[2021-08-23 21:01] LABS: Lactic Acid 2.5 MMOL/L (0.4-2.0)
[2021-08-23] MEDS: HEPARIN 5,000 UNIT/1 ML VIAL SUBCUT SCH (21:45)
[2021-08-23] MEDS: DEXTROSE 5% NACL 0.9% 1,000 ML IV SCH (21:45)
[2021-08-24 06:59] LABS: Basophils # 0.1 10*3/uL (0.0-0.2); Basophils % 0.6 % (0.0-0.8); Eosinophils % 0.1 % (0.00-10.9); Hematocrit 30.6 VOL% (35.7-47.0); Hemoglobin 10.5 GM/DL (12.0-16.0); Immature Granulocytes % 2.8 %; Immature Granulocytes Absolute 0.22 #; Lymphocytes # 2.1 10*3/uL (1.4-4.0); Lymphocytes % 26.9 % (21.3-54.2); Mean Corpuscular HGB Conc 34.3 GM/DL (32-36); Mean Corpuscular Volume 97.1 FL (87-102); Mean Platelet Volume 11.8 FL (9.6-12.0); Monocytes % 29.3 % (1.7-12.7); Neutrophils % 40.3 % (38.7-73.9); Platelet Count 107 T/CUMM (130-400); Red Blood Count 3.15 MC/CUMM (3.8-5.5); Red Cell Distribution Width 25.5 % (9.3-17.3)
[2021-08-24 07:17] LABS: Albumin 1.2 G/DL (3.4-5.0); Bilirubin,Total 8.9 MG/DL (0.20-1.00); Calcium 7.6 MG/DL (8.5-10.1); Osmolality,Calculated 276.4 MOS/KG (273-304); Potassium 3.3 MMOL/L (3.5-5.1); Total Protein 6.1 G/DL (6.4-8.2)
[2021-08-24 07:20] LABS: Hypochromia Slight; Lymphocytes 26 % (20-55); Platelet Estimate Decreased; Segmented Neutrophils 47 % (50-85); Total Cells Counted 100
[2021-08-24] MEDS ORDERED: POTASSIUM CHLORIDE 20 MEQ TABLET PO ONE (09:37)
[2021-08-24] MEDS: HEPARIN 5,000 UNIT/1 ML VIAL SUBCUT SCH ×2 (10:52→20:38)
[2021-08-24] MEDS: DEXTROSE 5% NACL 0.9% 1,000 ML IV SCH (12:24)
[2021-08-24] MEDS ORDERED: DEXAMETHASONE 10 MG/1 ML VIAL IV ONE (16:30)
[2021-08-24] MEDS ORDERED: PALONOSETRON 0.25 MG/5 ML VIAL IV ONE (16:30)
[2021-08-24] MEDS ORDERED: BEVACIZUMAB BVZR IV ONE (17:00)
[2021-08-24] MEDS ORDERED: SODIUM CHLORIDE 0.9% IV ONE (17:00)
[2021-08-24] MEDS ORDERED: LEUCOVORIN INJ 700 MG in DEXTROSE 5% 250 ML IV ONE (17:00)
[2021-08-24] MEDS ORDERED: MAGNESIUM HYDROXIDE SUSP 30 ML UDCUP PO PRN (22:22)
[2021-08-24] MEDS ORDERED: TEMAZEPAM 7.5 MG CAPSULE PO PRN (22:22)
[2021-08-24] MEDS ORDERED: chlorproMAZINE 25 MG TABLET PO PRN (22:22)
[2021-08-24] MEDS ORDERED: MYLANTA/LIDO VISC 2:1 300 ML BOTTLE SWISH/SPIT PRN (22:22)
[2021-08-24] MEDS ORDERED: ALUMINUM/MAGNES/SIMETH MAX STR 30 ML UDCUP PO PRN (22:22)
[2021-08-24] MEDS ORDERED: PROMETHAZINE INJ 25 MG in SODIUM CHLORIDE 0.9% 50 ML IV PRN (22:22)
[2021-08-24] MEDS ORDERED: chlorproMAZINE INJ 25 MG in SODIUM CHLORIDE 0.9% 100 ML IV PRN (22:22)
[2021-08-24] MEDS ORDERED: BENZTROPINE 2 MG/2 ML AMP IV PRN (22:22)
[2021-08-24] MEDS ORDERED: ALPRAZolam 0.25 MG TABLET PO PRN (22:22)
[2021-08-24] MEDS ORDERED: ACETAMINOPHEN 325 MG TABLET PO PRN (22:22)
[2021-08-24] MEDS ORDERED: guaiFENesin 200 MG/10 ML UDCUP PO PRN (22:22)
[2021-08-24] MEDS ORDERED: MYLANTA/LIDO VISC 2:1 300 ML BOTTLE SWISH/SWAL PRN (22:22)
[2021-08-24] MEDS ORDERED: LACTULOSE 20 GM/30 ML UDCUP PO PRN (22:22)
[2021-08-24] MEDS ORDERED: diphenhydrAMINE CAP 25 MG CAPSULE PO PRN (22:22)
[2021-08-24] MEDS ORDERED: traMADol 50 MG TABLET PO PRN (22:22)
[2021-08-24] MEDS ORDERED: chlorproMAZINE INJ 50 MG in SODIUM CHLORIDE 0.9% 100 ML IV PRN (22:22)
[2021-08-24] MEDS ORDERED: LOPERAMIDE 2 MG CAPSULE PO PRN ×2 (22:22)
[2021-08-25] MEDS: DEXTROSE 5% NACL 0.9% 1,000 ML IV SCH ×2 (00:47→14:33)
[2021-08-25 05:29] LABS: Basophils # 0.1 10*3/uL (0.0-0.2); Basophils % 0.5 % (0.0-0.8); Hematocrit 30.6 VOL% (35.7-47.0); Hemoglobin 11.1 GM/DL (12.0-16.0); Immature Granulocytes % 2.1 %; Immature Granulocytes Absolute 0.22 #; Lymphocytes # 1.5 10*3/uL (1.4-4.0); Lymphocytes % 14.7 % (21.3-54.2); Mean Corpuscular HGB Conc 36.3 GM/DL (32-36); Mean Corpuscular Volume 95.9 FL (87-102); Mean Platelet Volume 11.5 FL (9.6-12.0); Monocytes % 6.8 % (1.7-12.7); Neutrophils % 75.9 % (38.7-73.9); Platelet Count 112 T/CUMM (130-400); Red Blood Count 3.19 MC/CUMM (3.8-5.5); Red Cell Distribution Width 24.8 % (9.3-17.3); White Blood Count 10.5 T/CUMM (4-12)
[2021-08-25 05:55] LABS: Calcium 7.9 MG/DL (8.5-10.1); Osmolality,Calculated 275.5 MOS/KG (273-304); Potassium 3.7 MMOL/L (3.5-5.1)
[2021-08-25 05:56] LABS: Band Neutrophils 5 % (0-10); Lymphocytes 11 % (20-55); Segmented Neutrophils 76 % (50-85); Total Cells Counted 100
[2021-08-25 05:57] LABS: Anisocytosis 1+; Hypochromia 1+; Microcytosis 1+; Target Cells Slight
[2021-08-25 05:58] LABS: Platelet Estimate Adequate
[2021-08-25 06:21] LABS: Albumin 1.2 G/DL (3.4-5.0); Bilirubin,Direct 7.4 MG/DL (0.0-0.20); Bilirubin,Indirect 1.2 MG/DL (0.0-1.0); Bilirubin,Total 8.6 MG/DL (0.20-1.00); Total Protein 6.7 G/DL (6.4-8.2)
[2021-08-25] MEDS ORDERED: MAGNESIUM SULF RIDER 2 GM/50 ML PREMIX IV ONE ×2 (08:49→17:30)
[2021-08-25] MEDS: HEPARIN 5,000 UNIT/1 ML VIAL SUBCUT SCH ×2 (09:36→20:05)
[2021-08-25] MEDS ORDERED: POLYETHYLENE GLYCOL POWDER 17 GM PACK PO PRN (10:19)
[2021-08-25] MEDS ORDERED: SODIUM PHOSPHATE ENEMA 133 ML BOTTLE RECTAL PRN (10:20)
[2021-08-25] MEDS: DOCUSATE SODIUM 100 MG CAPSULE PO SCH ×2 (11:28→20:05)
[2021-08-25] MEDS: POLYETHYLENE GLYCOL POWDER 17 GM PACK PO SCH (11:29)
[2021-08-25] MEDS: MENTHOL/ZINC OXIDE OINT 71 GM JAR TOP SCH (20:05)
[2021-08-26] MEDS: DEXTROSE 5% NACL 0.9% 1,000 ML IV SCH ×2 (04:23→22:31)
[2021-08-26 06:02] LABS: Albumin 1.2 G/DL (3.4-5.0); Bilirubin,Total 7.8 MG/DL (0.20-1.00); Calcium 7.6 MG/DL (8.5-10.1); Osmolality,Calculated 280.4 MOS/KG (273-304); Potassium 3.6 MMOL/L (3.5-5.1); Total Protein 6.7 G/DL (6.4-8.2)
[2021-08-26] MEDS: MENTHOL/ZINC OXIDE OINT 71 GM JAR TOP SCH ×2 (08:25→22:31)
[2021-08-26] MEDS: HEPARIN 5,000 UNIT/1 ML VIAL SUBCUT SCH ×2 (09:26→20:33)
[2021-08-26] MEDS: DOCUSATE SODIUM 100 MG CAPSULE PO SCH ×2 (09:26→22:31)
[2021-08-26] MEDS: POLYETHYLENE GLYCOL POWDER 17 GM PACK PO SCH (09:27)
[2021-08-26] MEDS: ONDANSETRON 4 MG/2 ML VIAL IV PRN ×2 (11:51→16:12)
[2021-08-26] MEDS ORDERED: SIMETHICONE CHEW 80 MG TABLET PO PRN (12:14)
[2021-08-26] MEDS: PANTOPRAZOLE 40 MG VIAL IV SCH (16:12)
[2021-08-27] MEDS: ONDANSETRON 4 MG/2 ML VIAL IV PRN ×2 (03:06→09:05)
[2021-08-27] MEDS: DEXTROSE 5% NACL 0.9% 1,000 ML IV SCH ×3 (03:07→22:28)
[2021-08-27 07:16] LABS: Basophils # 0.1 10*3/uL (0.0-0.2); Basophils % 0.5 % (0.0-0.8); Hematocrit 35.5 VOL% (35.7-47.0); Hemoglobin 11.8 GM/DL (12.0-16.0); Immature Granulocytes % 3.3 %; Immature Granulocytes Absolute 0.51 #; Lymphocytes % 12.9 % (21.3-54.2); Mean Corpuscular HGB Conc 33.2 GM/DL (32-36); Mean Corpuscular Volume 97.5 FL (87-102); Mean Platelet Volume 12.3 FL (9.6-12.0); Monocytes % 1.3 % (1.7-12.7); NRBC # 0.06 10*3/uL; Platelet Count 121 T/CUMM (130-400); Red Blood Count 3.64 MC/CUMM (3.8-5.5); Red Cell Distribution Width 24.9 % (9.3-17.3); White Blood Count 15.5 T/CUMM (4-12)
[2021-08-27 07:22] LABS: Calcium 7.2 MG/DL (8.5-10.1); Potassium 3.5 MMOL/L (3.5-5.1); Total Protein 6.2 G/DL (6.4-8.2)
[2021-08-27] MEDS: DOCUSATE SODIUM 100 MG CAPSULE PO SCH ×2 (09:05→21:41)
[2021-08-27] MEDS: PANTOPRAZOLE 40 MG VIAL IV SCH ×2 (09:05→22:37)
[2021-08-27] MEDS: MENTHOL/ZINC OXIDE OINT 71 GM JAR TOP SCH (09:05)
[2021-08-27] MEDS: POLYETHYLENE GLYCOL POWDER 17 GM PACK PO SCH (09:06)
[2021-08-27 10:09] LABS: Band Neutrophils 8 % (0-10); Lymphocytes 7 % (20-55); Segmented Neutrophils 82 % (50-85); Total Cells Counted 100
[2021-08-27 10:10] LABS: Macrocytosis Slight
[2021-08-27 10:11] LABS: Anisocytosis 1+; Platelet Estimate Adequate; Target Cells Few
[2021-08-27] MEDS ORDERED: PHENOL 1.4% THROAT SPRAY 177 ML BOTTLE PO PRN (13:55)
[2021-08-27] MEDS: cefTRIAXone 2,000 MG in SODIUM CHLORIDE 0.9% 100 ML IV SCH (14:02)
[2021-08-27] MEDS: HEPARIN 5,000 UNIT/1 ML VIAL SUBCUT SCH (14:02)
[2021-08-27] MEDS ORDERED: ALBUMIN 5% 25.0 GM/500 ML VIAL IV ONE (16:33)
[2021-08-27] MEDS ORDERED: SUCCINYLCHOLINE 200 MG/10 ML VIAL ONE (16:35)
[2021-08-27] MEDS ORDERED: DEXAMETHASONE 4 MG/1 ML VIAL ONE ×2 (16:35→17:35)
[2021-08-27] MEDS ORDERED: ROCURONIUM 50 MG/5 ML VIAL IV ONE (16:35)
[2021-08-27] MEDS ORDERED: LIDOCAINE 2% 5 ML VIAL ONE (16:35)
[2021-08-27] MEDS ORDERED: propofoL 200 MG/20 ML VIAL IV ONE (16:35)
[2021-08-27] MEDS ORDERED: ONDANSETRON 4 MG/2 ML VIAL ONE (16:35)
[2021-08-27] MEDS ORDERED: fentaNYL 250 MCG/5 ML VIAL ONE (16:36)
[2021-08-27] MEDS ORDERED: SODIUM BICARBONATE 50 MEQ/50 ML VIAL IV ONE ×2 (17:19→19:14)
[2021-08-27] MEDS ORDERED: CALCIUM CHLORIDE 1,000 MG/10 ML VIAL IV ONE ×3 (17:20→18:26)
[2021-08-27] MEDS ORDERED: LACTATED RINGERS 2,000 ML IV ONE (17:35)
[2021-08-27] MEDS ORDERED: SODIUM CHLORIDE 0.9% 1,000 ML IV PRN ×3 (17:44→21:49)
[2021-08-27 17:46] LABS: ABG Base Excess -13.1 MMOL/L (-2.5-2.5); ABG HCO3 13.4 MMOL/L (20-26); ABG Oxygen Saturation 99.6 % (95-100); ABG PCO2 33.6 MM HG (35-48); ABG PO2 436.9 MM HG (80-95); ABG TCO2 14.5 MMOL/L (23-27); Glucose Heart Surgery 77 MG/DL (74-106); Hemoglobin Heart Surgery 7.3 G/DL (12.0-16.0); Potassium Heart/CVR 3.2 MMOL/L (3.5-5.1)
[2021-08-27] MEDS ORDERED: HEPARIN/NACL 0.9% 2 UNITS/ML 1,000 UNIT/500 ML BAG IV ONE (17:47)
[2021-08-27] MEDS ORDERED: NOREPINEPHRINE 4 MG/4 ML VIAL IV ONE (17:48)
[2021-08-27] MEDS ORDERED: KETAMINE 500 MG/10 ML VIAL ONE (17:56)
[2021-08-27] MEDS ORDERED: CALCIUM GLUCONATE 2,000 MG in SODIUM CHLORIDE 0.9% 100 ML IV ONE (18:56)
[2021-08-27] MEDS ORDERED: MIDAZOLAM 2 MG/2 ML VIAL ONE (19:02)
[2021-08-27 19:07] LABS: ABG Base Excess -16.9 MMOL/L (-2.5-2.5); ABG HCO3 11.6 MMOL/L (20-26); ABG Oxygen Saturation 99.2 % (95-100); ABG TCO2 13.1 MMOL/L (23-27); Glucose Heart Surgery 168 MG/DL (74-106); Hematocrit Heart Surgery 28.3 PERCENT (37-47); Hemoglobin Heart Surgery 9.1 G/DL (12.0-16.0); Ionized Calcium Arterial 1.31 MMOL/L (1.21-1.46); Potassium Heart/CVR 4.4 MMOL/L (3.5-5.1)
[2021-08-27 19:12] LABS: ABG PH 7.043 (7.35-7.45)
[2021-08-27 19:30] LABS: Amorphous Crystals,Urine Few /HPF (Few); Bacteria,Urine Moderate /HPF (Few); Bilirubin,Urine Moderate mg/dL (Negative); Blood, Urine Negative (Negative); Glucose,Urine (UA) 50 mg/dL (Negative); Ketones,Urine Negative (Negative); Mucus,Urine Many /LPF (Occasional); Nitrite,Urine Negative (Negative); Protein,Urine 30 MG/DL; RBC,Urine 3 /HPF (0-4); Urine Appearance CLOUDY (Clear); Urine Color Amber (Yellow); Urine Specific Gravity 1.016 (1.001-1.035)
[2021-08-27] MEDS ORDERED: LACTATED RINGERS 1,000 ML IV ONE ×2 (19:35)
[2021-08-27] MEDS ORDERED: SODIUM CHLORIDE 0.9% 250 ML IV ONE (19:35)
[2021-08-27] MEDS ORDERED: SEVOFLURANE 1 UNIT/15 MINUTE INH ONE (19:35)
[2021-08-27] MEDS ORDERED: NOREPINEPHRINE 8 MG in SODIUM CHLORIDE 0.9% 242 ML IV PRN (19:38)
[2021-08-27] MEDS ORDERED: LACTATED RINGERS 1,000 ML IV SCH (20:00)
[2021-08-27] MEDS: SODIUM BICARB INJ 150 MEQ in DEXTROSE 5% 1,000 ML IV SCH (21:23)
[2021-08-27] MEDS ORDERED: PHENYLEPHRINE DRIP 40 MG/250 ML PREMIX IV ONE (21:26)
[2021-08-27 21:28] LABS: ABG Base Excess -12.7 MMOL/L (-2.5-2.5); ABG HCO3 14.7 MMOL/L (20-26); ABG Oxygen Saturation 96.9 % (95-100); ABG PCO2 25.4 MM HG (35-48); ABG PH 7.297 (7.35-7.45); ABG PO2 90.2 MM HG (80-95); Glucose Heart Surgery 111 MG/DL (74-106); Hematocrit Heart Surgery 39.5 PERCENT (37-47); Hemoglobin Heart Surgery 12.8 G/DL (12.0-16.0); Potassium Heart/CVR 4.2 MMOL/L (3.5-5.1)
[2021-08-27] MEDS: MORPHINE 2 MG/1 ML SYRINGE IV PRN (21:31)
[2021-08-27] MEDS: PHENYLEPHRINE DRIP 40 MG/250 ML PREMIX IV PRN (21:35)
[2021-08-27 23:06] LABS: Basophils % 0.1 % (0.0-0.8); Hematocrit 35.8 VOL% (35.7-47.0); Hemoglobin 11.9 GM/DL (12.0-16.0); Immature Granulocytes % 12.4 %; Immature Granulocytes Absolute 2.37 #; Lymphocytes # 1.5 10*3/uL (1.4-4.0); Lymphocytes % 8.1 % (21.3-54.2); Mean Corpuscular HGB Conc 33.2 GM/DL (32-36); Mean Corpuscular Volume 90.4 FL (87-102); Mean Platelet Volume 11.6 FL (9.6-12.0); Monocytes % 0.9 % (1.7-12.7); NRBC # 0.12 10*3/uL; Neutrophils % 78.5 % (38.7-73.9); Platelet Count 78 T/CUMM (130-400); Red Blood Count 3.96 MC/CUMM (3.8-5.5); Red Cell Distribution Width 15.8 % (9.3-17.3)
[2021-08-27 23:22] LABS: Calcium 8.8 MG/DL (8.5-10.1); Osmolality,Calculated 297.3 MOS/KG (273-304); Potassium 4.2 MMOL/L (3.5-5.1)
[2021-08-27 23:31] LABS: Band Neutrophils 6 % (0-10); Lymphocytes 11 % (20-55); Metamyelocytes 3 %; Myelocytes 2 %; Nucleated Red Blood Cells 2 (0-5); Segmented Neutrophils 74 % (50-85); Total Cells Counted 100
[2021-08-27 23:32] LABS: Anisocytosis 1+; Platelet Estimate Decreased
[2021-08-27 23:33] LABS: Microcytosis Slight
[2021-08-27 23:34] LABS: Burr Cells Few; Polychromasia Slight
[2021-08-28] MEDS: PHENYLEPHRINE DRIP 40 MG/250 ML PREMIX IV PRN ×2 (01:06→04:02)
[2021-08-28] MEDS: HEPARIN 5,000 UNIT/1 ML VIAL SUBCUT SCH ×3 (01:44→20:20)
[2021-08-28] MEDS ORDERED: ALBUMIN 5% 25 GM/500 ML VIAL IV ONE (01:54)
[2021-08-28] MEDS ORDERED: MAGNESIUM SULF RIDER 4 GM/100 ML PREMIX IV PRN (01:57)
[2021-08-28] MEDS ORDERED: MAGNESIUM SULF RIDER 2 GM/50 ML PREMIX IV ONE (02:01)
[2021-08-28] MEDS: MAGNESIUM SULF RIDER 2 GM/50 ML PREMIX IV PRN (02:10)
[2021-08-28] MEDS: MORPHINE 2 MG/1 ML SYRINGE IV PRN (02:22)
[2021-08-28 02:36] LABS: ABG Base Excess -11.9 MMOL/L (-2.5-2.5); ABG HCO3 15.1 MMOL/L (20-26); ABG Oxygen Saturation 99.4 % (95-100); ABG PCO2 26.1 MM HG (35-48); ABG TCO2 12.1 MMOL/L (23-27)
[2021-08-28 02:47] LABS: Basophils % 0.1 % (0.0-0.8); Hematocrit 29.9 VOL% (35.7-47.0); Immature Granulocytes % 9.7 %; Immature Granulocytes Absolute 2.22 #; Lymphocytes # 1.7 10*3/uL (1.4-4.0); Lymphocytes % 7.5 % (21.3-54.2); Mean Corpuscular HGB Conc 33.4 GM/DL (32-36); Mean Corpuscular Volume 90.1 FL (87-102); Mean Platelet Volume 11.3 FL (9.6-12.0); Monocytes % 0.8 % (1.7-12.7); NRBC # 0.09 10*3/uL; Neutrophils % 81.9 % (38.7-73.9); Platelet Count 166 T/CUMM (130-400); Red Blood Count 3.32 MC/CUMM (3.8-5.5); Red Cell Distribution Width 16.2 % (9.3-17.3); White Blood Count 22.8 T/CUMM (4-12)
[2021-08-28 02:55] LABS: INR 1.6; PT Patient Result 17.2 SECS (10.5-12.0); Partial Thromboplastin Time 43.5 SECS (23.8-32.1)
[2021-08-28 03:02] LABS: Calcium 8.5 MG/DL (8.5-10.1); Osmolality,Calculated 297.3 MOS/KG (273-304); Potassium 3.8 MMOL/L (3.5-5.1)
[2021-08-28 03:36] LABS: Band Neutrophils 12 % (0-10); Burr Cells Few; Lymphocytes 11 % (20-55); Metamyelocytes 1 %; Myelocytes 1 %; Nucleated Red Blood Cells 2 (0-5); Platelet Estimate Normal; Segmented Neutrophils 73 % (50-85); Total Cells Counted 100; Toxic Granulation 1+
[2021-08-28 03:37] LABS: Anisocytosis 1+; Microcytosis Slight
[2021-08-28 03:40] LABS: Polychromasia Slight; Spherocytes Slight
[2021-08-28] MEDS: MENTHOL/ZINC OXIDE OINT 71 GM JAR TOP SCH ×3 (03:40→21:40)
[2021-08-28] MEDS: SODIUM BICARB INJ 150 MEQ in DEXTROSE 5% 1,000 ML IV SCH ×2 (06:30→15:41)
[2021-08-28] MEDS: PANTOPRAZOLE 40 MG VIAL IV SCH ×2 (09:03→20:20)
[2021-08-28] MEDS: DOCUSATE SODIUM 100 MG CAPSULE PO SCH ×2 (09:29→20:20)
[2021-08-28] MEDS: POLYETHYLENE GLYCOL POWDER 17 GM PACK PO SCH (09:30)
[2021-08-28] MEDS: cefTRIAXone 2,000 MG in SODIUM CHLORIDE 0.9% 100 ML IV SCH (12:58)
[2021-08-28] MEDS: CEFEPIME 1,000 MG in SODIUM CHLORIDE 0.9% 100 ML IV SCH ×3 (13:16→23:08)
[2021-08-28] MEDS: metroNIDAZOLE INJ 500 MG/100 ML PREMIX IV SCH ×2 (14:00→20:20)
[2021-08-28] MEDS: VANCOMYCIN INJ 1,250 MG in SODIUM CHLORIDE 0.9% 250 ML IV SCH (15:15)
[2021-08-28 18:18] LABS: Hematocrit 22.8 VOL% (35.7-47.0); Hemoglobin 8.1 GM/DL (12.0-16.0)
[2021-08-28 23:16] LABS: Hematocrit 23.4 VOL% (35.7-47.0); Hemoglobin 8.4 GM/DL (12.0-16.0)
[2021-08-29] MEDS: SODIUM BICARB INJ 150 MEQ in DEXTROSE 5% 1,000 ML IV SCH ×3 (00:49→20:36)
[2021-08-29] MEDS: VANCOMYCIN INJ 1,250 MG in SODIUM CHLORIDE 0.9% 250 ML IV SCH ×2 (01:28→14:50)
[2021-08-29] MEDS: PHENYLEPHRINE DRIP 40 MG/250 ML PREMIX IV PRN ×3 (02:12→13:23)
[2021-08-29] MEDS: metroNIDAZOLE INJ 500 MG/100 ML PREMIX IV SCH ×3 (04:03→20:27)
[2021-08-29 04:13] LABS: Hematocrit 23.4 VOL% (35.7-47.0); Hemoglobin 8.4 GM/DL (12.0-16.0); Immature Granulocytes % 8.7 %; Immature Granulocytes Absolute 3.11 #; Lymphocytes # 2.1 10*3/uL (1.4-4.0); Lymphocytes % 5.8 % (21.3-54.2); Mean Corpuscular HGB Conc 35.9 GM/DL (32-36); Mean Platelet Volume 12.5 FL (9.6-12.0); Monocytes % 0.4 % (1.7-12.7); NRBC # 0.04 10*3/uL; Neutrophils % 85.1 % (38.7-73.9); Platelet Count 45 T/CUMM (130-400); Red Blood Count 2.72 MC/CUMM (3.8-5.5); Red Cell Distribution Width 16.1 % (9.3-17.3); White Blood Count 35.9 T/CUMM (4-12)
[2021-08-29 04:15] LABS: ABG Base Excess 3.6 MMOL/L (-2.5-2.5); ABG HCO3 27.7 MMOL/L (20-26); ABG Oxygen Saturation 99.5 % (95-100); ABG PCO2 37.6 MM HG (35-48)
[2021-08-29 04:19] LABS: Calcium 7.1 MG/DL (8.5-10.1); Osmolality,Calculated 298.4 MOS/KG (273-304); Potassium 3.1 MMOL/L (3.5-5.1)
[2021-08-29 04:22] LABS: INR 1.6; PT Patient Result 16.9 SECS (10.5-12.0); Partial Thromboplastin Time 50.8 SECS (23.8-32.1)
[2021-08-29 04:34] LABS: Band Neutrophils 4 % (0-10); Hypochromia 1+; Lymphocytes 4 % (20-55); Microcytosis 1+; Nucleated Red Blood Cells 1 (0-5); Platelet Estimate Decreased; Segmented Neutrophils 92 % (50-85); Total Cells Counted 100
[2021-08-29] MEDS: MAGNESIUM SULF RIDER 2 GM/50 ML PREMIX IV PRN (04:59)
[2021-08-29] MEDS: CEFEPIME 1,000 MG in SODIUM CHLORIDE 0.9% 100 ML IV SCH ×3 (05:29→18:15)
[2021-08-29] MEDS ORDERED: SODIUM CHLORIDE 0.9% 1,000 ML IV PRN (09:02)
[2021-08-29] MEDS: MENTHOL/ZINC OXIDE OINT 71 GM JAR TOP SCH ×2 (09:06→22:50)
[2021-08-29] MEDS: DOCUSATE SODIUM 100 MG CAPSULE PO SCH ×2 (09:07→20:27)
[2021-08-29] MEDS: HEPARIN 5,000 UNIT/1 ML VIAL SUBCUT SCH (09:07)
[2021-08-29] MEDS: POLYETHYLENE GLYCOL POWDER 17 GM PACK PO SCH (09:07)
[2021-08-29] MEDS ORDERED: MIDAZOLAM 2 MG/2 ML VIAL ONE ×2 (09:24)
[2021-08-29] MEDS ORDERED: PHENYLEPHRINE 1 MG/10 ML SYRINGE IV ONE (09:24)
[2021-08-29] MEDS ORDERED: VECURONIUM 10 MG VIAL IV ONE (09:25)
[2021-08-29] MEDS ORDERED: fentaNYL 250 MCG/5 ML VIAL ONE (09:25)
[2021-08-29] MEDS: PANTOPRAZOLE 40 MG VIAL IV SCH ×2 (10:05→20:27)
[2021-08-29] MEDS ORDERED: ALBUMIN 5% 12.5 GM/250 ML VIAL IV ONE (10:29)
[2021-08-30] MEDS: CEFEPIME 1,000 MG in SODIUM CHLORIDE 0.9% 100 ML IV SCH ×4 (00:30→19:07)
[2021-08-30] MEDS: VANCOMYCIN INJ 1,250 MG in SODIUM CHLORIDE 0.9% 250 ML IV SCH (01:42)
[2021-08-30] MEDS: metroNIDAZOLE INJ 500 MG/100 ML PREMIX IV SCH ×3 (03:49→21:00)
[2021-08-30 04:29] LABS: ABG Base Excess 8.6 MMOL/L (-2.5-2.5); ABG HCO3 32.4 MMOL/L (20-26); ABG Oxygen Saturation 99.2 % (95-100); ABG PCO2 38.5 MM HG (35-48); ABG PH 7.528 (7.35-7.45); ABG TCO2 29.4 MMOL/L (23-27)
[2021-08-30 04:42] LABS: INR 1.4; PT Patient Result 14.9 SECS (10.5-12.0)
[2021-08-30 04:45] LABS: Calcium 6.4 MG/DL (8.5-10.1); Osmolality,Calculated 291.7 MOS/KG (273-304)
[2021-08-30 04:47] LABS: Potassium 2.3 MMOL/L (3.5-5.1)
[2021-08-30] MEDS ORDERED: POTASSIUM CHLORIDE RIDER 10 MEQ/100 ML PREMIX IV PRN (04:51)
[2021-08-30] MEDS ORDERED: POTASSIUM CHLORIDE RIDER 20 MEQ/100 ML PREMIX IV ONE (04:53)
[2021-08-30] MEDS: POTASSIUM CHLORIDE RIDER 20 MEQ/100 ML PREMIX IV PRN ×4 (04:53→21:23)
[2021-08-30 04:55] LABS: Basophils # 0.1 10*3/uL (0.0-0.2); Basophils % 0.6 % (0.0-0.8); Eosinophils % 0.1 % (0.00-10.9); Hematocrit 24.8 VOL% (35.7-47.0); Hemoglobin 8.8 GM/DL (12.0-16.0); Immature Granulocytes % 3.7 %; Immature Granulocytes Absolute 0.56 #; Lymphocytes # 2.4 10*3/uL (1.4-4.0); Mean Corpuscular HGB Conc 35.5 GM/DL (32-36); Monocytes % 0.7 % (1.7-12.7); NRBC # 0.03 10*3/uL; Neutrophils % 78.9 % (38.7-73.9); Red Blood Count 2.85 MC/CUMM (3.8-5.5); Red Cell Distribution Width 15.6 % (9.3-17.3); White Blood Count 15.2 T/CUMM (4-12)
[2021-08-30 04:57] LABS: Platelet Count 9 T/CUMM (130-400)
[2021-08-30] MEDS ORDERED: SODIUM CHLORIDE 0.9% 1,000 ML IV PRN (05:03)
[2021-08-30 05:05] LABS: Hypochromia 1+; Lymphocytes 16 % (20-55); Microcytosis 1+; Nucleated Red Blood Cells 1 (0-5); Platelet Estimate Decreased; Segmented Neutrophils 84 % (50-85); Total Cells Counted 100
[2021-08-30] MEDS: SODIUM BICARB INJ 150 MEQ in DEXTROSE 5% 1,000 ML IV SCH ×2 (06:33→15:32)
[2021-08-30] MEDS: DOCUSATE SODIUM 100 MG CAPSULE PO SCH ×2 (09:21→21:25)
[2021-08-30] MEDS: PANTOPRAZOLE 40 MG VIAL IV SCH ×2 (09:21→21:22)
[2021-08-30] MEDS: POLYETHYLENE GLYCOL POWDER 17 GM PACK PO SCH (09:21)
[2021-08-30] MEDS: MENTHOL/ZINC OXIDE OINT 71 GM JAR TOP SCH ×2 (09:21→21:22)
[2021-08-31] MEDS: POTASSIUM CHLORIDE RIDER 20 MEQ/100 ML PREMIX IV PRN ×2 (00:14→05:39)
[2021-08-31] MEDS: CEFEPIME 1,000 MG in SODIUM CHLORIDE 0.9% 100 ML IV SCH ×5 (00:21→23:14)
[2021-08-31] MEDS: SODIUM BICARB INJ 150 MEQ in DEXTROSE 5% 1,000 ML IV SCH (00:45)
[2021-08-31] MEDS: metroNIDAZOLE INJ 500 MG/100 ML PREMIX IV SCH (03:16)
[2021-08-31 03:59] LABS: ABG Base Excess 10.6 MMOL/L (-2.5-2.5); ABG HCO3 33.7 MMOL/L (20-26); ABG PCO2 38.6 MM HG (35-48); ABG PH 7.559 (7.35-7.45); ABG PO2 119.1 MM HG (80-95); ABG TCO2 34.9 MMOL/L (23-27)
[2021-08-31 04:01] LABS: Basophils % 0.5 % (0.0-0.8); Eosinophils % 0.1 % (0.00-10.9); Hemoglobin 8.7 GM/DL (12.0-16.0); Immature Granulocytes % 1.5 %; Immature Granulocytes Absolute 0.12 #; Lymphocytes % 36.5 % (21.3-54.2); Mean Corpuscular HGB Conc 34.8 GM/DL (32-36); Mean Corpuscular Volume 87.1 FL (87-102); Monocytes % 1.3 % (1.7-12.7); NRBC # 0.06 10*3/uL; Neutrophils % 60.1 % (38.7-73.9); Platelet Count 52 T/CUMM (130-400); Red Blood Count 2.87 MC/CUMM (3.8-5.5); Red Cell Distribution Width 15.7 % (9.3-17.3); White Blood Count 8.2 T/CUMM (4-12)
[2021-08-31 04:21] LABS: Hypochromia 1+; Lymphocytes 27 % (20-55); Microcytosis 1+; Nucleated Red Blood Cells 1 (0-5); Platelet Estimate Decreased; Segmented Neutrophils 73 % (50-85); Total Cells Counted 100
[2021-08-31 04:26] LABS: Calcium 6.3 MG/DL (8.5-10.1); Osmolality,Calculated 290.7 MOS/KG (273-304); Potassium 3.3 MMOL/L (3.5-5.1)
[2021-08-31 04:27] LABS: Albumin 1.4 G/DL (3.4-5.0); Calcium 6.3 MG/DL (8.5-10.1); Osmolality,Calculated 287.8 MOS/KG (273-304); Potassium 3.2 MMOL/L (3.5-5.1); Total Protein 4.4 G/DL (6.4-8.2)
[2021-08-31] MEDS: MAGNESIUM SULF RIDER 2 GM/50 ML PREMIX IV PRN (06:28)
[2021-08-31] MEDS: PHENYLEPHRINE DRIP 40 MG/250 ML PREMIX IV PRN ×4 (07:30→23:43)
[2021-08-31] MEDS: PANTOPRAZOLE 40 MG VIAL IV SCH ×2 (08:44→20:22)
[2021-08-31] MEDS ORDERED: DEXT 5% LACT RING KCL 20 MEQ 20 MEQ/1,000 ML BAG IV SCH (09:30)
[2021-08-31] MEDS: MENTHOL/ZINC OXIDE OINT 71 GM JAR TOP SCH ×2 (10:20→20:23)
[2021-08-31] MEDS: POLYETHYLENE GLYCOL POWDER 17 GM PACK PO SCH (10:21)
[2021-08-31] MEDS: DOCUSATE SODIUM 100 MG CAPSULE PO SCH ×2 (10:21→20:23)
[2021-08-31] MEDS: VANCOMYCIN INJ 1,000 MG in SODIUM CHLORIDE 0.9% 250 ML IV SCH (12:05)
[2021-08-31] MEDS ORDERED: LYTES IV SCH (17:00)
[2021-08-31] MEDS ORDERED: DEXT IV SCH (17:00)
[2021-08-31] MEDS ORDERED: DEXTROSE 10% 1,000 ML IV PRN (17:00)
[2021-08-31] MEDS ORDERED: MULTIVITAMIN IV SCH (17:00)
[2021-08-31] MEDS ORDERED: AMINO ACIDS IV SCH (17:00)
[2021-08-31] MEDS ORDERED: GLUCAGON 1 MG VIAL IM PRN (17:17)
[2021-08-31] MEDS ORDERED: DEXTROSE 50% 25 GM/50 ML VIAL IV PRN (17:17)
[2021-08-31] MEDS: MULTIVITAMIN INJ 10 ML in AMINO ACIDS/DEXT/LYTES 4.25-5% 2,000 ML IV SCH (17:37)
[2021-08-31] MEDS: INSULIN REGULAR 100 UNIT/ML SUBCUT SCH ×2 (18:17→23:21)
[2021-08-31] MEDS: DEXTROSE 10% 25 GM/250 ML BAG IV PRN (19:25)
[2021-09-01 04:29] LABS: ABG Base Excess 7.6 MMOL/L (-2.5-2.5); ABG HCO3 31.4 MMOL/L (20-26); ABG Oxygen Saturation 99.4 % (95-100); ABG PCO2 38.6 MM HG (35-48); ABG PH 7.514 (7.35-7.45); ABG TCO2 28.3 MMOL/L (23-27)
[2021-09-01 04:37] LABS: Basophils % 0.4 % (0.0-0.8); Eosinophils % 0.6 % (0.00-10.9); Hematocrit 26.9 VOL% (35.7-47.0); Hemoglobin 9.1 GM/DL (12.0-16.0); Immature Granulocytes % 1.2 %; Immature Granulocytes Absolute 0.08 #; Lymphocytes # 3.5 10*3/uL (1.4-4.0); Lymphocytes % 51.6 % (21.3-54.2); Mean Corpuscular HGB Conc 33.8 GM/DL (32-36); Mean Corpuscular Volume 89.7 FL (87-102); Monocytes % 1.9 % (1.7-12.7); NRBC # 0.05 10*3/uL; Neutrophils % 44.3 % (38.7-73.9); Red Cell Distribution Width 16.1 % (9.3-17.3); White Blood Count 6.7 T/CUMM (4-12)
[2021-09-01 04:42] LABS: Platelet Count 8 T/CUMM (130-400)
[2021-09-01 04:55] LABS: Albumin 1.2 G/DL (3.4-5.0); Calcium 6.2 MG/DL (8.5-10.1); Osmolality,Calculated 294.4 MOS/KG (273-304); Potassium 2.6 MMOL/L (3.5-5.1); Total Protein 4.3 G/DL (6.4-8.2)
[2021-09-01] MEDS: PHENYLEPHRINE DRIP 40 MG/250 ML PREMIX IV PRN ×4 (04:56→20:48)
[2021-09-01 04:57] LABS: Bilirubin,Total 12.8 MG/DL (0.20-1.00)
[2021-09-01 05:05] LABS: Band Neutrophils 1 % (0-10); Lymphocytes 50 % (20-55); Metamyelocytes 1 %; Nucleated Red Blood Cells 4 (0-5); Segmented Neutrophils 43 % (50-85); Total Cells Counted 100
[2021-09-01 05:06] LABS: Anisocytosis 1+; Microcytosis 1+; Smudge Cells Few; Target Cells Slight
[2021-09-01 05:07] LABS: Hypochromia 1+; Platelet Estimate Decreased
[2021-09-01] MEDS: INSULIN REGULAR 100 UNIT/ML SUBCUT SCH ×3 (05:40→19:08)
[2021-09-01] MEDS: CEFEPIME 1,000 MG in SODIUM CHLORIDE 0.9% 100 ML IV SCH ×3 (05:41→17:53)
[2021-09-01] MEDS: POTASSIUM CHLORIDE RIDER 20 MEQ/100 ML PREMIX IV PRN ×2 (07:06→08:06)
[2021-09-01] MEDS: PANTOPRAZOLE 40 MG VIAL IV SCH ×2 (08:07→20:35)
[2021-09-01] MEDS: MENTHOL/ZINC OXIDE OINT 71 GM JAR TOP SCH ×2 (08:07→20:00)
[2021-09-01] MEDS: DOCUSATE SODIUM 100 MG CAPSULE PO SCH (08:07)
[2021-09-01] MEDS: POLYETHYLENE GLYCOL POWDER 17 GM PACK PO SCH (08:07)
[2021-09-01] MEDS: POTASSIUM CHLORIDE RIDER 20 MEQ/100 ML PREMIX IV SCH ×3 (09:32→14:26)
[2021-09-01] MEDS ORDERED: SODIUM CHLORIDE 0.9% 1,000 ML IV PRN (09:33)
[2021-09-01] MEDS ORDERED: POTASSIUM PHOSPHATE 40 MMOL in SODIUM CHLORIDE 0.9% 250 ML IV ONE (10:00)
[2021-09-01 12:51] LABS: Calcium 6.6 MG/DL (8.5-10.1); Osmolality,Calculated 291.7 MOS/KG (273-304); Potassium 3.6 MMOL/L (3.5-5.1)
[2021-09-01] MEDS: VANCOMYCIN INJ 1,000 MG in SODIUM CHLORIDE 0.9% 250 ML IV SCH (12:59)
[2021-09-01] MEDS: MULTIVITAMIN INJ 10 ML in AMINO ACIDS/DEXT/LYTES 4.25-5% 2,000 ML IV SCH (17:53)
[2021-09-01] MEDS: MULTIVITAMIN INJ 10 ML in AMINO ACIDS/DEXT/LYTES 5-20% 2,000 ML IV SCH (17:53)
[2021-09-01] MEDS: HYDROmorphone 2 MG/1 ML VIAL IV PRN (22:56)
[2021-09-02] MEDS: CEFEPIME 1,000 MG in SODIUM CHLORIDE 0.9% 100 ML IV SCH ×4 (00:28→18:00)
[2021-09-02] MEDS: PHENYLEPHRINE DRIP 40 MG/250 ML PREMIX IV PRN ×4 (01:43→22:10)
[2021-09-02] MEDS: INSULIN REGULAR 100 UNIT/ML SUBCUT SCH ×4 (01:44→19:14)
[2021-09-02 03:33] LABS: ABG Base Excess 4.5 MMOL/L (-2.5-2.5); ABG HCO3 28.5 MMOL/L (20-26); ABG Oxygen Saturation 99.4 % (95-100); ABG PCO2 42.9 MM HG (35-48); ABG PH 7.438 (7.35-7.45)
[2021-09-02 03:35] LABS: Basophils % 0.2 % (0.0-0.8); Eosinophils # 0.1 10*3/uL (0.0-0.87); Eosinophils % 1.2 % (0.00-10.9); Hematocrit 24.6 VOL% (35.7-47.0); Immature Granulocytes % 0.5 %; Immature Granulocytes Absolute 0.03 #; Lymphocytes # 3.1 10*3/uL (1.4-4.0); Lymphocytes % 50.7 % (21.3-54.2); Mean Corpuscular HGB Conc 32.5 GM/DL (32-36); Mean Corpuscular Volume 93.9 FL (87-102); Mean Platelet Volume 10.6 FL (9.6-12.0); Monocytes % 3.5 % (1.7-12.7); NRBC # 0.07 10*3/uL; Neutrophils % 43.9 % (38.7-73.9); Red Blood Count 2.62 MC/CUMM (3.8-5.5); Red Cell Distribution Width 16.5 % (9.3-17.3)
[2021-09-02 03:48] LABS: Platelet Count 36 T/CUMM (130-400)
[2021-09-02 03:51] LABS: Albumin 1.2 G/DL (3.4-5.0); Calcium 6.5 MG/DL (8.5-10.1); Osmolality,Calculated 299.3 MOS/KG (273-304); Potassium 2.8 MMOL/L (3.5-5.1); Total Protein 4.3 G/DL (6.4-8.2)
[2021-09-02 03:56] LABS: Bilirubin,Total 14.6 MG/DL (0.20-1.00)
[2021-09-02 04:14] LABS: Lymphocytes 63 % (20-55); Nucleated Red Blood Cells 1 (0-5); Platelet Estimate Decreased; Segmented Neutrophils 35 % (50-85); Total Cells Counted 100
[2021-09-02 04:15] LABS: Microcytosis 1+; Schistocytes 1+
[2021-09-02] MEDS: POTASSIUM CHLORIDE RIDER 20 MEQ/100 ML PREMIX IV PRN (05:14)
[2021-09-02] MEDS: POTASSIUM CHLORIDE 20 MEQ TABLET PO SCH ×3 (09:38→17:23)
[2021-09-02] MEDS: MENTHOL/ZINC OXIDE OINT 71 GM JAR TOP SCH ×2 (09:38→21:28)
[2021-09-02] MEDS: PANTOPRAZOLE 40 MG VIAL IV SCH ×2 (09:39→21:28)
[2021-09-02] MEDS: POLYETHYLENE GLYCOL POWDER 17 GM PACK PO SCH (09:39)
[2021-09-02] MEDS: DOCUSATE SODIUM 100 MG CAPSULE PO SCH (09:39)
[2021-09-02] MEDS: HYDROmorphone 2 MG/1 ML VIAL IV PRN ×2 (11:51→19:15)
[2021-09-02] MEDS: VANCOMYCIN INJ 1,000 MG in SODIUM CHLORIDE 0.9% 250 ML IV SCH (13:03)
[2021-09-02] MEDS: MULTIVITAMIN INJ 10 ML in AMINO ACIDS/DEXT/LYTES 5-20% 2,000 ML IV SCH (17:23)
[2021-09-03] MEDS: CEFEPIME 1,000 MG in SODIUM CHLORIDE 0.9% 100 ML IV SCH ×4 (00:30→18:08)
[2021-09-03] MEDS: HYDROmorphone 2 MG/1 ML VIAL IV PRN ×3 (00:35→11:58)
[2021-09-03] MEDS: INSULIN REGULAR 100 UNIT/ML SUBCUT SCH ×5 (00:50→23:30)
[2021-09-03] MEDS: PHENYLEPHRINE DRIP 40 MG/250 ML PREMIX IV PRN ×4 (03:21→23:50)
[2021-09-03 04:25] LABS: ABG Base Excess 2.1 MMOL/L (-2.5-2.5); ABG HCO3 26.2 MMOL/L (20-26); ABG Oxygen Saturation 97.9 % (95-100); ABG PCO2 38.7 MM HG (35-48); ABG PH 7.448 (7.35-7.45); ABG PO2 100.3 MM HG (80-95); ABG TCO2 27.4 MMOL/L (23-27)
[2021-09-03 04:33] LABS: Basophils % 0.4 % (0.0-0.8); Eosinophils % 0.7 % (0.00-10.9); Hematocrit 26.8 VOL% (35.7-47.0); Hemoglobin 8.3 GM/DL (12.0-16.0); Immature Granulocytes % 2.4 %; Immature Granulocytes Absolute 0.13 #; Lymphocytes # 2.7 10*3/uL (1.4-4.0); Lymphocytes % 48.9 % (21.3-54.2); Mean Corpuscular Volume 95.4 FL (87-102); Mean Platelet Volume 11.5 FL (9.6-12.0); Monocytes % 16.4 % (1.7-12.7); NRBC # 0.65 10*3/uL; Neutrophils % 31.2 % (38.7-73.9); Red Blood Count 2.81 MC/CUMM (3.8-5.5); Red Cell Distribution Width 17.2 % (9.3-17.3); White Blood Count 5.5 T/CUMM (4-12)
[2021-09-03 04:40] LABS: Platelet Count 15 T/CUMM (130-400)
[2021-09-03 04:47] LABS: Albumin 1.1 G/DL (3.4-5.0); Calcium 7.1 MG/DL (8.5-10.1); Osmolality,Calculated 290.8 MOS/KG (273-304); Potassium 3.8 MMOL/L (3.5-5.1); Total Protein 4.6 G/DL (6.4-8.2)
[2021-09-03 04:57] LABS: Bilirubin,Total 14.2 MG/DL (0.20-1.00)
[2021-09-03 04:59] LABS: Band Neutrophils 1 % (0-10); Hypochromia 1+; Lymphocytes 48 % (20-55); Microcytosis 1+; Nucleated Red Blood Cells 12 (0-5); Platelet Estimate Decreased; Segmented Neutrophils 32 % (50-85); Total Cells Counted 100
[2021-09-03] MEDS ORDERED: MAGNESIUM SULF RIDER 2 GM/50 ML PREMIX IV ONE (08:02)
[2021-09-03] MEDS: MENTHOL/ZINC OXIDE OINT 71 GM JAR TOP SCH ×2 (09:22→21:40)
[2021-09-03] MEDS: DOCUSATE SODIUM 100 MG CAPSULE PO SCH (09:22)
[2021-09-03] MEDS: POLYETHYLENE GLYCOL POWDER 17 GM PACK PO SCH (09:22)
[2021-09-03] MEDS: PANTOPRAZOLE 40 MG VIAL IV SCH ×2 (09:22→21:38)
[2021-09-03] MEDS ORDERED: SODIUM CHLORIDE 0.9% 1,000 ML IV PRN (11:12)
[2021-09-03] MEDS: VANCOMYCIN INJ 1,000 MG in SODIUM CHLORIDE 0.9% 250 ML IV SCH (11:58)
[2021-09-03] MEDS ORDERED: DEXT IV SCH (17:00)
[2021-09-03] MEDS ORDERED: LYTES IV SCH (17:00)
[2021-09-03] MEDS ORDERED: AMINO ACIDS IV SCH (17:00)
[2021-09-03] MEDS ORDERED: MULTIVITAMIN IV SCH (17:00)
[2021-09-03] MEDS ORDERED: DEXTROSE 50% 25 GM/50 ML SYRINGE IV ONE (23:21)
[2021-09-03] MEDS: DEXTROSE 10% 25 GM/250 ML BAG IV PRN (23:30)
[2021-09-04] MEDS: CEFEPIME 1,000 MG in SODIUM CHLORIDE 0.9% 100 ML IV SCH ×5 (02:33→23:44)
[2021-09-04] MEDS ORDERED: EPINEPHrine 1 MG/10 ML SYRINGE IV ONE (03:49)
[2021-09-04] MEDS ORDERED: MAGNESIUM SULFATE 1 GM/2 ML VIAL IV ONE (03:49)
[2021-09-04] MEDS ORDERED: SODIUM BICARBONATE 50 MEQ/50 ML SYRINGE IV ONE (03:49)
[2021-09-04] MEDS ORDERED: DEXTROSE 50% 25 GM/50 ML SYRINGE IV ONE (03:49)
[2021-09-04] MEDS ORDERED: ETOMIDATE 20 MG/10 ML VIAL IV ONE (03:54)
[2021-09-04] MEDS ORDERED: ROCURONIUM 100 MG/10 ML VIAL IV ONE ×2 (03:54)
[2021-09-04] MEDS: NOREPINEPHRINE 8 MG in SODIUM CHLORIDE 0.9% 242 ML IV PRN ×2 (04:02→22:50)
[2021-09-04] MEDS: PHENYLEPHRINE DRIP 40 MG/250 ML PREMIX IV PRN ×3 (04:38→09:47)
[2021-09-04 04:45] LABS: Basophils % 0.4 % (0.0-0.8); Eosinophils % 0.2 % (0.00-10.9); Immature Granulocytes % 13.2 %; Immature Granulocytes Absolute 0.67 #; Lymphocytes # 2.6 10*3/uL (1.4-4.0); Lymphocytes % 51.9 % (21.3-54.2); Mean Corpuscular HGB Conc 31.1 GM/DL (32-36); Mean Corpuscular Volume 107.2 FL (87-102); Mean Platelet Volume 10.9 FL (9.6-12.0); Monocytes % 17.9 % (1.7-12.7); NRBC # 2.38 10*3/uL; Neutrophils % 16.4 % (38.7-73.9); Red Cell Distribution Width 19.9 % (9.3-17.3); White Blood Count 5.1 T/CUMM (4-12)
[2021-09-04 04:48] LABS: Hematocrit 22.2 VOL% (35.7-47.0); Hemoglobin 6.9 GM/DL (12.0-16.0); Platelet Count 76 T/CUMM (130-400); Red Blood Count 2.07 MC/CUMM (3.8-5.5)
[2021-09-04 04:59] LABS: Albumin 1.1 G/DL (3.4-5.0); Bilirubin,Direct 10.25 MG/DL (0.0-0.20); Total Protein 4.3 G/DL (6.4-8.2)
[2021-09-04 05:02] LABS: Calcium 6.9 MG/DL (8.5-10.1); Potassium 4.1 MMOL/L (3.5-5.1)
[2021-09-04 05:05] LABS: Band Neutrophils 2 % (0-10); Eosinophils 1 % (0-10); Hypochromia 1+; Lymphocytes 54 % (20-55); Microcytosis 1+; Nucleated Red Blood Cells 67 (0-5); Platelet Estimate Decreased; Segmented Neutrophils 24 % (50-85); Total Cells Counted 100
[2021-09-04 05:06] LABS: ABG Base Excess -6.2 MMOL/L (-2.5-2.5); ABG HCO3 19.3 MMOL/L (20-26); ABG Oxygen Saturation 99.2 % (95-100); ABG PH 7.294 (7.35-7.45); ABG TCO2 18.8 MMOL/L (23-27)
[2021-09-04 05:10] LABS: Bilirubin,Indirect 2.1 MG/DL (0.0-1.0); Bilirubin,Total 12.3 MG/DL (0.20-1.00)
[2021-09-04] MEDS: INSULIN REGULAR 100 UNIT/ML SUBCUT SCH ×4 (06:58→23:36)
[2021-09-04] MEDS: POLYETHYLENE GLYCOL POWDER 17 GM PACK PO SCH (09:50)
[2021-09-04] MEDS: DOCUSATE SODIUM 100 MG CAPSULE PO SCH (09:50)
[2021-09-04] MEDS: MENTHOL/ZINC OXIDE OINT 71 GM JAR TOP SCH ×2 (09:50→20:31)
[2021-09-04] MEDS: PANTOPRAZOLE 40 MG VIAL IV SCH ×2 (09:51→20:31)
[2021-09-04] MEDS ORDERED: MIDAZOLAM 100 MG in SODIUM CHLORIDE 0.9% 80 ML IV PRN (09:56)
[2021-09-04] MEDS ORDERED: SODIUM CHLORIDE 0.9% 1,000 ML IV PRN ×2 (10:37→10:52)
[2021-09-04] MEDS: PHENYLEPHRINE INJ 160 MG in SODIUM CHLORIDE 0.9% 234 ML IV PRN ×2 (11:48→18:40)
[2021-09-04] MEDS: DEXTROSE 10% 25 GM/250 ML BAG IV PRN ×3 (12:02→23:44)
[2021-09-04] MEDS: VANCOMYCIN INJ 1,000 MG in SODIUM CHLORIDE 0.9% 250 ML IV SCH ×2 (12:13→16:20)
[2021-09-05] MEDS: PHENYLEPHRINE DRIP 40 MG/250 ML PREMIX IV PRN ×2 (00:34→07:04)
[2021-09-05 03:54] LABS: Basophils # 0.1 10*3/uL (0.0-0.2); Basophils % 0.9 % (0.0-0.8); Eosinophils % 0.2 % (0.00-10.9); Hematocrit 33.3 VOL% (35.7-47.0); Immature Granulocytes % 12.3 %; Immature Granulocytes Absolute 0.72 #; Lymphocytes # 2.1 10*3/uL (1.4-4.0); Mean Corpuscular HGB Conc 31.8 GM/DL (32-36); Mean Corpuscular Volume 95.1 FL (87-102); Mean Platelet Volume 12.4 FL (9.6-12.0); NRBC # 2.81 10*3/uL; Neutrophils % 31.6 % (38.7-73.9); Red Cell Distribution Width 19.2 % (9.3-17.3); White Blood Count 5.8 T/CUMM (4-12)
[2021-09-05 03:57] LABS: ABG Base Excess -6.2 MMOL/L (-2.5-2.5); ABG HCO3 19.6 MMOL/L (20-26); ABG Oxygen Saturation 99.6 % (95-100); ABG PCO2 28.6 MM HG (35-48); ABG PH 7.385 (7.35-7.45); ABG TCO2 13.8 MMOL/L (23-27)
[2021-09-05 04:04] LABS: Hemoglobin 10.6 GM/DL (12.0-16.0); Platelet Count 27 T/CUMM (130-400)
[2021-09-05 04:11] LABS: Calcium 7.7 MG/DL (8.5-10.1); Osmolality,Calculated 301.3 MOS/KG (273-304); Potassium 4.2 MMOL/L (3.5-5.1)
[2021-09-05 04:14] LABS: Band Neutrophils 6 % (0-10); Hypochromia Slight; Lymphocytes 45 % (20-55); Microcytosis Slight; Nucleated Red Blood Cells 87 (0-5); Platelet Estimate Decreased; Segmented Neutrophils 31 % (50-85); Total Cells Counted 100
[2021-09-05 04:25] LABS: Albumin 1.1 G/DL (3.4-5.0); Bilirubin,Direct 11.32 MG/DL (0.0-0.20); Bilirubin,Indirect 3.8 MG/DL (0.0-1.0); Total Protein 4.1 G/DL (6.4-8.2)
[2021-09-05 04:48] LABS: Bilirubin,Total 15.1 MG/DL (0.20-1.00)
[2021-09-05] MEDS: INSULIN REGULAR 100 UNIT/ML SUBCUT SCH ×3 (05:28→18:08)
[2021-09-05] MEDS: CEFEPIME 1,000 MG in SODIUM CHLORIDE 0.9% 100 ML IV SCH ×3 (05:33→18:15)
[2021-09-05] MEDS: PHENYLEPHRINE INJ 160 MG in SODIUM CHLORIDE 0.9% 234 ML IV PRN ×2 (08:00→14:42)
[2021-09-05] MEDS: MENTHOL/ZINC OXIDE OINT 71 GM JAR TOP SCH ×2 (08:24→22:28)
[2021-09-05] MEDS: PANTOPRAZOLE 40 MG VIAL IV SCH ×2 (08:24→22:30)
[2021-09-05] MEDS: DOCUSATE SODIUM 100 MG CAPSULE PO SCH (08:24)
[2021-09-05] MEDS: POLYETHYLENE GLYCOL POWDER 17 GM PACK PO SCH (08:24)
[2021-09-05] MEDS: NOREPINEPHRINE 8 MG in SODIUM CHLORIDE 0.9% 242 ML IV PRN ×4 (08:36→23:30)
[2021-09-05] MEDS ORDERED: DEXTROSE 50% 25 GM/50 ML SYRINGE IV ONE ×2 (09:27→10:00)
[2021-09-05] MEDS ORDERED: DEXTROSE 10% 25 GM/250 ML BAG IV PRN (09:46)
[2021-09-05] MEDS ORDERED: DOCUSATE SODIUM 100 MG CAPSULE PO PRN (10:24)
[2021-09-05] MEDS: DEXTROSE 10% 1,000 ML IV SCH (11:07)
[2021-09-05] MEDS ORDERED: ALBUMIN 25% 25 GM/100 ML VIAL IV ONE (11:07)
[2021-09-05] MEDS: HYDROCORTISONE 100 MG VIAL IV SCH ×2 (11:47→22:33)
[2021-09-05] MEDS: VANCOMYCIN INJ 1,000 MG in SODIUM CHLORIDE 0.9% 250 ML IV SCH (12:23)
[2021-09-05] MEDS ORDERED: METOPROLOL TARTRATE 5 MG/5 ML VIAL IV ONE (12:59)
[2021-09-05] MEDS ORDERED: DILTIAZEM 25 MG/5 ML VIAL IV ONE ×2 (13:00)
[2021-09-05] MEDS ORDERED: DILTIAZEM 50 MG/10 ML VIAL IV ONE (15:50)
[2021-09-05] MEDS: DILTIAZEM INJ 100 MG in SODIUM CHLORIDE 0.9% 100 ML IV SCH ×2 (16:52→23:42)
[2021-09-05] MEDS: DEXTROSE 10% 25 GM/250 ML BAG IV PRN (18:10)
[2021-09-06] MEDS: CEFEPIME 1,000 MG in SODIUM CHLORIDE 0.9% 100 ML IV SCH ×4 (01:36→17:13)
[2021-09-06] MEDS: INSULIN REGULAR 100 UNIT/ML SUBCUT SCH ×4 (01:54→18:05)
[2021-09-06] MEDS: HYDROCORTISONE 100 MG VIAL IV SCH ×3 (04:07→21:01)
[2021-09-06 05:08] LABS: ABG Base Excess -10.2 MMOL/L (-2.5-2.5); ABG HCO3 16.4 MMOL/L (20-26); ABG Oxygen Saturation 98.2 % (95-100); ABG PCO2 24.2 MM HG (35-48); ABG PH 7.365 (7.35-7.45); ABG TCO2 12.5 MMOL/L (23-27); Basophils % 0.2 % (0.0-0.8); Hematocrit 33.6 VOL% (35.7-47.0); Hemoglobin 10.5 GM/DL (12.0-16.0); Immature Granulocytes % 11.7 %; Immature Granulocytes Absolute 1.51 #; Lymphocytes # 1.8 10*3/uL (1.4-4.0); Lymphocytes % 14.3 % (21.3-54.2); Mean Corpuscular HGB Conc 31.3 GM/DL (32-36); Mean Corpuscular Volume 97.7 FL (87-102); Mean Platelet Volume 12.3 FL (9.6-12.0); Monocytes % 11.3 % (1.7-12.7); NRBC # 3.71 10*3/uL; Neutrophils % 62.5 % (38.7-73.9); Platelet Count 60 T/CUMM (130-400); Red Blood Count 3.44 MC/CUMM (3.8-5.5); Red Cell Distribution Width 21.1 % (9.3-17.3); White Blood Count 12.9 T/CUMM (4-12)
[2021-09-06] MEDS: DILTIAZEM INJ 100 MG in SODIUM CHLORIDE 0.9% 100 ML IV SCH ×3 (05:10→17:14)
[2021-09-06 05:27] LABS: Band Neutrophils 2 % (0-10); Hypochromia 1+; Lymphocytes 15 % (20-55); Microcytosis 1+; Nucleated Red Blood Cells 44 (0-5); Platelet Estimate Decreased; Segmented Neutrophils 71 % (50-85); Total Cells Counted 100
[2021-09-06 05:28] LABS: Calcium 8.2 MG/DL (8.5-10.1); Osmolality,Calculated 299.6 MOS/KG (273-304); Potassium 4.7 MMOL/L (3.5-5.1)
[2021-09-06 05:40] LABS: Albumin 1.6 G/DL (3.4-5.0); Bilirubin,Direct 14.22 MG/DL (0.0-0.20); Total Protein 4.7 G/DL (6.4-8.2)
[2021-09-06 05:42] LABS: Bilirubin,Indirect 4.8 MG/DL (0.0-1.0)
[2021-09-06] MEDS: MENTHOL/ZINC OXIDE OINT 71 GM JAR TOP SCH ×2 (09:16→21:28)
[2021-09-06] MEDS: PANTOPRAZOLE 40 MG VIAL IV SCH ×2 (09:16→21:04)
[2021-09-06] MEDS: PHENYLEPHRINE INJ 160 MG in SODIUM CHLORIDE 0.9% 234 ML IV PRN (10:24)
[2021-09-06] MEDS: NOREPINEPHRINE 8 MG in SODIUM CHLORIDE 0.9% 242 ML IV PRN ×2 (11:11→17:28)
[2021-09-06] MEDS ORDERED: LEVALBUTEROL 1.25 MG/3 ML NEB RESP TX PRN (22:49)
[2021-09-06] MEDS: DEXTROSE 10% 1,000 ML IV SCH (23:45)
[2021-09-07] MEDS: INSULIN REGULAR 100 UNIT/ML SUBCUT SCH ×5 (01:05→23:03)
[2021-09-07] MEDS: CEFEPIME 1,000 MG in SODIUM CHLORIDE 0.9% 100 ML IV SCH ×3 (01:07→17:15)
[2021-09-07] MEDS: DILTIAZEM INJ 100 MG in SODIUM CHLORIDE 0.9% 100 ML IV SCH ×2 (01:11→15:27)
[2021-09-07] MEDS: HYDROCORTISONE 100 MG VIAL IV SCH ×3 (04:02→19:57)
[2021-09-07 04:30] LABS: ABG Base Excess -11.7 MMOL/L (-2.5-2.5); ABG HCO3 15.5 MMOL/L (20-26); ABG Oxygen Saturation 97.5 % (95-100); ABG PCO2 24.9 MM HG (35-48); ABG TCO2 11.1 MMOL/L (23-27)
[2021-09-07 04:36] LABS: Basophils # 0.1 10*3/uL (0.0-0.2); Basophils % 0.7 % (0.0-0.8); Hematocrit 33.3 VOL% (35.7-47.0); Hemoglobin 10.4 GM/DL (12.0-16.0); Immature Granulocytes % 8.5 %; Immature Granulocytes Absolute 1.59 #; Lymphocytes % 10.6 % (21.3-54.2); Mean Corpuscular HGB Conc 31.2 GM/DL (32-36); Mean Corpuscular Volume 97.4 FL (87-102); Monocytes % 10.6 % (1.7-12.7); Neutrophils % 69.6 % (38.7-73.9); Red Blood Count 3.42 MC/CUMM (3.8-5.5); Red Cell Distribution Width 21.9 % (9.3-17.3)
[2021-09-07 04:37] LABS: Platelet Count 47 T/CUMM (130-400); White Blood Count 18.7 T/CUMM (4-12)
[2021-09-07] MEDS: PHENYLEPHRINE INJ 160 MG in SODIUM CHLORIDE 0.9% 234 ML IV PRN (04:55)
[2021-09-07 05:08] LABS: Osmolality,Calculated 302.7 MOS/KG (273-304); Potassium 4.9 MMOL/L (3.5-5.1)
[2021-09-07 05:16] LABS: Band Neutrophils 1 % (0-10); Lymphocytes 15 % (20-55); Metamyelocytes 2 %; Myelocytes 1 %; Nucleated Red Blood Cells 17 (0-5); Segmented Neutrophils 73 % (50-85); Total Cells Counted 100
[2021-09-07 05:17] LABS: Anisocytosis 1+; Hypochromia Slight; Microcytosis 1+; Platelet Estimate Decreased
[2021-09-07 05:27] LABS: Albumin 1.4 G/DL (3.4-5.0); Bilirubin,Direct 12.43 MG/DL (0.0-0.20); Total Protein 4.7 G/DL (6.4-8.2)
[2021-09-07 05:30] LABS: Bilirubin,Indirect 4.2 MG/DL (0.0-1.0); Bilirubin,Total 16.6 MG/DL (0.20-1.00)
[2021-09-07] MEDS: NOREPINEPHRINE 8 MG in SODIUM CHLORIDE 0.9% 242 ML IV PRN ×4 (07:16→21:18)
[2021-09-07] MEDS: PANTOPRAZOLE 40 MG VIAL IV SCH ×2 (08:02→20:05)
[2021-09-07] MEDS: HYDROmorphone 2 MG/1 ML VIAL IV PRN ×2 (08:04→15:25)
[2021-09-07] MEDS: DEXTROSE 10% 1,000 ML IV SCH ×2 (08:06→20:04)
[2021-09-07] MEDS: MENTHOL/ZINC OXIDE OINT 71 GM JAR TOP SCH ×2 (08:06→20:05)
[2021-09-08 03:47] LABS: ABG Base Excess -12.2 MMOL/L (-2.5-2.5); ABG HCO3 15.2 MMOL/L (20-26); ABG Oxygen Saturation 97.7 % (95-100); ABG PCO2 27.3 MM HG (35-48); ABG PH 7.292 (7.35-7.45); ABG TCO2 11.5 MMOL/L (23-27)
[2021-09-08] MEDS: HYDROCORTISONE 100 MG VIAL IV SCH ×3 (03:59→20:22)
[2021-09-08 04:10] LABS: Calcium 8.3 MG/DL (8.5-10.1); Osmolality,Calculated 301.3 MOS/KG (273-304); Potassium 5.1 MMOL/L (3.5-5.1)
[2021-09-08 04:15] LABS: Basophils % 0.1 % (0.0-0.8); Hematocrit 35.1 VOL% (35.7-47.0); Hemoglobin 10.8 GM/DL (12.0-16.0); Immature Granulocytes % 7.7 %; Lymphocytes # 2.1 10*3/uL (1.4-4.0); Lymphocytes % 7.6 % (21.3-54.2); Mean Corpuscular HGB Conc 30.8 GM/DL (32-36); Monocytes % 7.9 % (1.7-12.7); NRBC # 5.05 10*3/uL; Neutrophils % 76.7 % (38.7-73.9); Platelet Count 43 T/CUMM (130-400); Red Blood Count 3.51 MC/CUMM (3.8-5.5); Red Cell Distribution Width 22.7 % (9.3-17.3); White Blood Count 27.4 T/CUMM (4-12)
[2021-09-08] MEDS: NOREPINEPHRINE 8 MG in SODIUM CHLORIDE 0.9% 242 ML IV PRN ×3 (04:25→18:17)
[2021-09-08] MEDS: DEXTROSE 10% 1,000 ML IV SCH ×2 (04:36→10:41)
[2021-09-08 05:05] LABS: Anisocytosis 1+; Band Neutrophils 3 % (0-10); Hypochromia Slight; Lymphocytes 6 % (20-55); Microcytosis 1+; Nucleated Red Blood Cells 32 (0-5); Polychromasia Slight; Segmented Neutrophils 80 % (50-85); Total Cells Counted 100
[2021-09-08 05:06] LABS: Pappenheimer Bodies Slight
[2021-09-08 05:07] LABS: Platelet Estimate Decreased
[2021-09-08] MEDS: INSULIN REGULAR 100 UNIT/ML SUBCUT SCH ×3 (05:09→18:17)
[2021-09-08] MEDS: CEFEPIME 1,000 MG in SODIUM CHLORIDE 0.9% 100 ML IV SCH ×2 (05:12→18:24)
[2021-09-08] MEDS: PHENYLEPHRINE INJ 160 MG in SODIUM CHLORIDE 0.9% 234 ML IV PRN (10:00)
[2021-09-08] MEDS: DILTIAZEM INJ 100 MG in SODIUM CHLORIDE 0.9% 100 ML IV SCH (10:20)
[2021-09-08] MEDS: PANTOPRAZOLE 40 MG VIAL IV SCH ×2 (10:21→20:22)
[2021-09-08] MEDS: MENTHOL/ZINC OXIDE OINT 71 GM JAR TOP SCH ×2 (10:21→20:22)
[2021-09-08] MEDS ORDERED: NOREPINEPHRINE 4 MG/4 ML VIAL IV ONE (11:09)
[2021-09-08] MEDS: DESITIN 4OZ/NYSTATIN 15 GRAM MIXTURE PASTE TOP SCH ×2 (15:47→20:22)
[2021-09-09] MEDS: INSULIN REGULAR 100 UNIT/ML SUBCUT SCH ×4 (00:10→18:06)
[2021-09-09] MEDS: NOREPINEPHRINE 8 MG in SODIUM CHLORIDE 0.9% 242 ML IV PRN ×3 (01:22→19:05)
[2021-09-09 04:11] LABS: ABG Base Excess -14.6 MMOL/L (-2.5-2.5); ABG HCO3 10.6 MMOL/L (20-26); ABG Oxygen Saturation 98.3 % (95-100); ABG PCO2 23.7 MM HG (35-48); ABG PH 7.267 (7.35-7.45); ABG PO2 133.5 MM HG (80-95); ABG TCO2 11.3 MMOL/L (23-27)
[2021-09-09 04:13] LABS: Basophils # 0.1 10*3/uL (0.0-0.2); Basophils % 0.2 % (0.0-0.8); Hematocrit 33.9 VOL% (35.7-47.0); Hemoglobin 10.6 GM/DL (12.0-16.0); Immature Granulocytes % 9.9 %; Lymphocytes # 1.8 10*3/uL (1.4-4.0); Lymphocytes % 5.6 % (21.3-54.2); Mean Corpuscular HGB Conc 31.3 GM/DL (32-36); Mean Corpuscular Volume 99.7 FL (87-102); Monocytes % 7.5 % (1.7-12.7); NRBC # 7.31 10*3/uL; Neutrophils % 76.8 % (38.7-73.9); Red Cell Distribution Width 23.4 % (9.3-17.3); White Blood Count 32.5 T/CUMM (4-12)
[2021-09-09 04:16] LABS: Platelet Count 34 T/CUMM (130-400)
[2021-09-09 04:39] LABS: Lymphocytes 10 % (20-55); Nucleated Red Blood Cells 40 (0-5); Segmented Neutrophils 82 % (50-85); Total Cells Counted 100
[2021-09-09 04:40] LABS: Acanthocytes 1+; Macrocytosis 1+; Platelet Estimate Decreased; Polychromasia 1+
[2021-09-09 04:42] LABS: Albumin 1.2 G/DL (3.4-5.0); Calcium 7.9 MG/DL (8.5-10.1); Osmolality,Calculated 306.1 MOS/KG (273-304); Potassium 5.2 MMOL/L (3.5-5.1); Total Protein 5.3 G/DL (6.4-8.2)
[2021-09-09 04:45] LABS: Bilirubin,Total 16.3 MG/DL (0.20-1.00)
[2021-09-09] MEDS: HYDROCORTISONE 100 MG VIAL IV SCH ×3 (04:56→21:30)
[2021-09-09] MEDS: CEFEPIME 1,000 MG in SODIUM CHLORIDE 0.9% 100 ML IV SCH ×2 (05:01→17:03)
[2021-09-09] MEDS: DILTIAZEM INJ 100 MG in SODIUM CHLORIDE 0.9% 100 ML IV SCH ×2 (06:21→16:53)
[2021-09-09] MEDS: DEXTROSE 10% 1,000 ML IV SCH ×2 (06:35→12:36)
[2021-09-09] MEDS: MENTHOL/ZINC OXIDE OINT 71 GM JAR TOP SCH ×2 (08:53→21:30)
[2021-09-09] MEDS: DESITIN 4OZ/NYSTATIN 15 GRAM MIXTURE PASTE TOP SCH ×2 (08:53→21:30)
[2021-09-09] MEDS: PANTOPRAZOLE 40 MG VIAL IV SCH ×2 (09:36→21:12)
[2021-09-09] MEDS: PHENYLEPHRINE INJ 160 MG in SODIUM CHLORIDE 0.9% 234 ML IV PRN (16:53)
[2021-09-10] MEDS: DILTIAZEM INJ 100 MG in SODIUM CHLORIDE 0.9% 100 ML IV SCH ×2 (02:21→15:08)
[2021-09-10 04:05] LABS: ABG Base Excess -14.3 MMOL/L (-2.5-2.5); ABG HCO3 13.6 MMOL/L (20-26); ABG Oxygen Saturation 99.3 % (95-100); ABG PCO2 24.6 MM HG (35-48); ABG PH 7.272 (7.35-7.45); ABG TCO2 10.3 MMOL/L (23-27)
[2021-09-10 04:21] LABS: Basophils # 0.1 10*3/uL (0.0-0.2); Basophils % 0.3 % (0.0-0.8); Hematocrit 36.2 VOL% (35.7-47.0); Hemoglobin 11.3 GM/DL (12.0-16.0); Immature Granulocytes Absolute 6.34 #; Lymphocytes # 1.9 10*3/uL (1.4-4.0); Lymphocytes % 4.8 % (21.3-54.2); Mean Corpuscular HGB Conc 31.2 GM/DL (32-36); Mean Corpuscular Volume 99.2 FL (87-102); Monocytes % 7.2 % (1.7-12.7); NRBC # 12.64 10*3/uL; Neutrophils % 71.7 % (38.7-73.9); Platelet Count 46 T/CUMM (130-400); Red Blood Count 3.65 MC/CUMM (3.8-5.5); White Blood Count 39.7 T/CUMM (4-12)
[2021-09-10 04:26] LABS: Calcium 8.1 MG/DL (8.5-10.1); Osmolality,Calculated 302.5 MOS/KG (273-304); Potassium 5.1 MMOL/L (3.5-5.1)
[2021-09-10 04:43] LABS: Band Neutrophils 2 % (0-10); Lymphocytes 7 % (20-55); Metamyelocytes 2 %; Myelocytes 2 %; Nucleated Red Blood Cells 48 (0-5); Platelet Estimate Decreased; Segmented Neutrophils 79 % (50-85); Total Cells Counted 100
[2021-09-10] MEDS: HYDROCORTISONE 100 MG VIAL IV SCH ×3 (05:07→21:22)
[2021-09-10] MEDS: NOREPINEPHRINE 8 MG in SODIUM CHLORIDE 0.9% 242 ML IV PRN ×3 (05:10→18:56)
[2021-09-10 05:25] VITALS: BP 96/51
[2021-09-10] MEDS: INSULIN REGULAR 100 UNIT/ML SUBCUT SCH ×4 (06:30→17:27)
[2021-09-10] MEDS: CEFEPIME 1,000 MG in SODIUM CHLORIDE 0.9% 100 ML IV SCH ×2 (06:30→17:57)
[2021-09-10] MEDS: PANTOPRAZOLE 40 MG VIAL IV SCH ×2 (09:10→21:25)
[2021-09-10] MEDS: MENTHOL/ZINC OXIDE OINT 71 GM JAR TOP SCH ×2 (09:15→21:30)
[2021-09-10] MEDS: DESITIN 4OZ/NYSTATIN 15 GRAM MIXTURE PASTE TOP SCH ×2 (09:16→21:30)
[2021-09-10] MEDS: DEXTROSE 10% 1,000 ML IV SCH (11:00)
[2021-09-10] MEDS: DEXTROSE 10% 500 ML IV SCH (11:12)
[2021-09-10] MEDS ORDERED: NOREPINEPHRINE 4 MG/4 ML VIAL IV ONE (12:28)
[2021-09-10] MEDS ORDERED: VANCOMYCIN INJ 2,000 MG in SODIUM CHLORIDE 0.9% 500 ML IV ONE (13:00)
[2021-09-10] MEDS: NOREPINEPHRINE 16 MG in SODIUM CHLORIDE 0.9% 234 ML IV PRN (22:37)
[2021-09-11] MEDS: INSULIN REGULAR 100 UNIT/ML SUBCUT SCH ×3 (01:15→12:42)
[2021-09-11] MEDS: NOREPINEPHRINE 16 MG in SODIUM CHLORIDE 0.9% 234 ML IV PRN ×3 (03:35→11:10)
[2021-09-11 05:10] LABS: ABG Base Excess -27.7 MMOL/L (-2.5-2.5); ABG HCO3 5.9 MMOL/L (20-26); ABG Oxygen Saturation 98.3 % (95-100); ABG TCO2 3.7 MMOL/L (23-27)
[2021-09-11 05:22] LABS: ABG PH 6.952 (7.35-7.45)
[2021-09-11] MEDS ORDERED: SODIUM BICARBONATE 50 MEQ/50 ML VIAL IV ONE (05:29)
[2021-09-11] MEDS ORDERED: SODIUM BICARB INJ 150 MEQ in STERILE WATER INJ 850 ML IV SCH (05:30)
[2021-09-11 05:56] LABS: Calcium 6.3 MG/DL (8.5-10.1); Osmolality,Calculated 307.3 MOS/KG (273-304); Potassium 5.3 MMOL/L (3.5-5.1)
[2021-09-11] MEDS: HYDROCORTISONE 100 MG VIAL IV SCH ×2 (06:00→12:42)
[2021-09-11] MEDS: CEFEPIME 1,000 MG in SODIUM CHLORIDE 0.9% 100 ML IV SCH (06:00)
[2021-09-11 06:25] LABS: Basophils # 0.6 10*3/uL (0.0-0.2); Basophils % 1.3 % (0.0-0.8); Hematocrit 33.2 VOL% (35.7-47.0); Hemoglobin 9.6 GM/DL (12.0-16.0); Immature Granulocytes % 27.2 %; Immature Granulocytes Absolute 12.04 #; Lymphocytes # 1.3 10*3/uL (1.4-4.0); Lymphocytes % 2.9 % (21.3-54.2); Mean Corpuscular HGB Conc 28.9 GM/DL (32-36); Mean Corpuscular Volume 108.9 FL (87-102); Monocytes % 12.1 % (1.7-12.7); NRBC # 17.42 10*3/uL; Neutrophils % 56.5 % (38.7-73.9); Platelet Count 54 T/CUMM (130-400); Red Blood Count 3.05 MC/CUMM (3.8-5.5); Red Cell Distribution Width 25.2 % (9.3-17.3)
[2021-09-11 06:33] LABS: White Blood Count 44.3 T/CUMM (4-12)
[2021-09-11 07:54] LABS: Anisocytosis 3+; Band Neutrophils 16 % (0-10); Lymphocytes 8 % (20-55); Macrocytosis 2+; Metamyelocytes 6 %; Myelocytes 9 %; Nucleated Red Blood Cells 41 (0-5); Platelet Estimate Decreased; Promyelocytes 4 %; Segmented Neutrophils 49 % (50-85); Total Cells Counted 100
[2021-09-11 07:55] LABS: Burr Cells 1+; Smudge Cells Few
[2021-09-11] MEDS: PHENYLEPHRINE INJ 160 MG in SODIUM CHLORIDE 0.9% 234 ML IV PRN (09:30)
[2021-09-11] MEDS: DESITIN 4OZ/NYSTATIN 15 GRAM MIXTURE PASTE TOP SCH (09:34)
[2021-09-11] MEDS: MENTHOL/ZINC OXIDE OINT 71 GM JAR TOP SCH (09:34)
[2021-09-11] MEDS: PANTOPRAZOLE 40 MG VIAL IV SCH (09:41)
[2021-09-11] MEDS: DEXTROSE 10% 500 ML IV SCH (12:41)
[2021-09-11] MEDS ORDERED: VANCOMYCIN INJ 1,250 MG in SODIUM CHLORIDE 0.9% 250 ML IV PRN (13:00)
== END 2021-09-11 13:10 | disposition expired | DRG 335 ==
LOC: N.ED 12:00 → N.3E 12:00 → SUATTDRO 19:21 → N.3E 23:26 → N.TELES 08-24 15:24 → SUATTDRO 08-25 10:27 → N.ICU 08-27 18:41
PROVIDERS: ADMIT Internal Medicine; ATTEND Internal Medicine